=== PATIENT | female | born 1960 | race Caucasian/White ===

== ENCOUNTER 2023-08-14 09:51 | Outpatient (OUT) | payer MEDICARE, MEDICAID, SELFPAY ==
--- NOTE | 2023-08-14 10:43 | ECG_ITS ---
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
[2023-08-14 10:59] LABS: Basophils Percent Auto 0.2 % (0.2-2.0); Eosinophils Absolute Auto 0.1 10^3/uL (0.0-0.7); Eosinophils Percent Auto 1.4 % (0.9-7.0); Hematocrit 37.9 % (36.0-48.0); Hemoglobin 12.1 g/dL (12.0-16.0); Immature Granulocytes Abs Auto 0.02 10^3/uL (0.00-0.03); Immature Granulocytes Pct Auto 0.3 % (0.0-0.5); Lymphocytes Absolute Auto 0.9 10^3/uL (1.2-3.8); Lymphocytes Percent Auto 16.1 % (20.5-60.0); Mean Corpuscular HGB Conc 31.9 g/dL (29.9-35.2); Mean Corpuscular Hemoglobin 28.3 pg (26.7-34.0); Mean Corpuscular Volume 88.6 fL (81.0-99.0); Mean Platelet Volume 13.6 fL (9.5-13.5); Monocytes Absolute Auto 0.4 10^3/uL (0.3-0.8); Monocytes Percent Auto 6.7 % (1.7-12.0); Neutrophils Absolute Auto 4.4 10^3/uL (1.4-6.5); Neutrophils Percent Auto 75.3 % (43.0-75.0); Platelet Count 102 10^3/uL (150-450); Red Blood Count 4.28 10^6/uL (4.20-5.40); Red Cell Distribution Width 13.6 % (11.0-15.0); White Blood Count 5.8 10^3/uL (4.0-11.0)
== END 2023-08-14 09:52 | disposition home or self-care (01) ==
LOC: PST 09:57
PROVIDERS: Visit Provider Otolaryngology
DX: Z01.810 Encounter for preprocedural cardiovascular examination (principal); Z01.812 Encounter for preprocedural laboratory examination; T16.2XXA Foreign body in left ear, initial encounter
CPT/HCPCS: 36415; 85025; 93005

== ENCOUNTER 2023-09-04 08:18 | Day surgery (SDC) | payer MEDICARE, MEDICAID, SELFPAY ==
[2023-08-14 10:41] VITALS: BP 132/83; PULSE 75; RESP 20; TEMP 36.5; O2SAT 94; BMI 29.2
[2023-09-04] VITALS (11 sets, daily range): BP systolic 131–147; BP diastolic 84–103; PULSE 74–86; RESP 9–28; TEMP 35.9–36.1; O2SAT 92–96
--- NOTE | 2023-09-04 | OP_ITS ---
OPERATION DATE: 09/04/2023 PRIMARY CARE PHYSICIAN: Bob Hoyos M.D. SURGEON: Yoon Florian M.D. PREOPERATIVE DIAGNOSIS: Left middle ear foreign body. POSTOPERATIVE DIAGNOSIS: Bilateral ear foreign bodies. PROCEDURE: Bilateral removal of ear foreign bodies. ANESTHESIA: General LMA. COMPLICATIONS: None. FINDINGS: Extensive bilateral crusting of the tympanic membrane with left tympanic membrane inflammation, and a left anterior 10% tympanic membrane perforation with no left middle ear foreign body found, and a pin point right tympanic membrane perforation. INDICATIONS: This 63-year-old woman presented to have her ears cleaned. She was noted in 2022 to have an apparent modified Romain?s T-tube in her left anterior middle ear, which was visualized through her perforation. She did not follow through with preadmission testing to have the foreign body removed at that time. In June, she returned and again there appeared to be a foreign body in the anterior left middle, and she was brought to the OR for removal. After careful exploration in the operating room, with the patient anesthetized, still no middle ear foreign body could be found on the left, and there was a shadow created by the eustachian tube orifice, which appeared as though it may have mimicked a middle ear foreign body. Nonetheless, the patient had marked crusting of her left tympanic membrane, which was debrided with a pick and an alligator. The right ear was then examined to ensure that a mistake had not been made in the office, documenting the incorrect side containing the foreign body, and examination of the right ear did not show any foreign body either; however, again, there was extensive crusting of the tympanic membrane and external auditory canal, which was debrided. PROCEDURE: Patient identified in the holding are and taken back to the OR, where she was placed in the supine position. After induction of general anesthesia by LMA, the left ear was approached with the otomicroscope. Examination of the middle ear through the patient?s tympanic membrane perforation did not reveal any clear foreign body; however, there was a linear shadow anteriorly, created by the eustachian tube orifice that was noted. Right angle picks and suction were used to explore the middle ear through the perforation, to ensure that what had previously appeared to be a tympanostomy tube in the middle ear, had not migrated out of view, and there was no foreign body identified. The patient did have extensive crusting, which was debrided with a pick and a forcep, and Ciprodex drops were infused in the left ear, because of inflammation of the tympanic membrane around the perforation. Attention was then turned to the right ear, as noted, to ensure that it was not a right ear foreign body and that incorrect documentation in the office had occurred. However, there was no middle ear foreign body found; although again, there was marked crusting of the tympanic membrane and external auditory canal, which was debrided with a pick and a forcep. The patient was then awakened and taken to the recovery room in good condition. MAKSIM
--- OUTSIDE RECORDS SUMMARY | 2023-09-04 08:22 | XMS_ITS | CCD ---
Author Name Unknown Address [address] [place] [address] Organization [facility] Care Team Providers Care Technical Supervisor Name Role Phone MISC, DR KOCH Admitting Unavailable MISC, DR KOCH Attending Unavailable MISC, DR KOCH Primary Care Unavailable MIS, DR KOCH Consulting Unavailable AYDE BLANCHARD Primary Care Physician [phone] BROOK MONTEIRO Attending Unavailable GO SHERIFF Referring Unavailable SILVIA NUR Attending Unavailable Jackelyn Camarena Unavailable Ayde Hoyos MD Primary Care Provider Allergies Allergy Classification Reported Allergen(s) Allergy Type Date of Onset Reaction(s) Facility (2 sources) Prochlorperazine Drug Allergy 02-25-20 13 muscle twitcing [facility] Repository (3 sources) Prochlorperazine; Translations: [prochlorperazine] Drug Allergy 12-27-19 23 Temporomandibular joint locking (finding), Unknown [facility] Medications Current Medications Medication Drug Class(es) Dates Sig (Normalized) Sig (Original) cholecalciferol 0.05 mg oral capsule (1 source) Vitamin D Start: 02-06-2023 cholecalciferol (Vitamin D-3) 50 MCG (1999 UT) capsule Take by mouth Daily. 0 02/06/2023 Active dexamethasone 1 mg/ml / neomycin 3.5 mg/ml / polymyxin b 28963 unt/ml ophthalmic suspension (1 source) Aminoglycoside Antibacterial, Polymyxin-class Antibacterial, Corticosteroid Start: 07-24-2023 take 1 drop(s) into the eye(s) four times daily Neomycin-Polymyxin- Dexameth [id number] 1 drop into affected eye Ophthalmic Four times a day for 5 days Jul, Active ergocalciferol 0.05 mg oral capsule (1 source) Provitamin D2 Compound Start: 03-20-2023 take 1 capsule by mouth in the morning ergocalciferol (Vitamin D-2) 50 MCG (1999) capsule Take 1 capsule by mouth in the morning. 0 03/20/2023 Active 24 hr oxybutynin chloride 5 mg extended release oral tablet (1 source) Cholinergic Muscarinic Antagonist Start: 01-11-2023 oxybutynin 5 mg ER Tab Refills(s) 0 Start Date: 01/11/23 Status: Ordered QUEtiapine 100 mg oral tablet (4 sources) Atypical Antipsychotic Start: 01-11-2023 quetiapine 100 mg Tab Refills(s) 0 Start Date: 01/11/23 Status: Ordered take 1 tablet by shy th every twenty-four hours SEROquel 100 MG 1 tablet at bedtime Oral ly Once a day Not-Taking/PRN sertraline 100 mg oral tablet (3 sources) Serotonin Reuptake Inhibitor Start: 01-20-2020 sertraline 100 mg Ta b Refills(s) 0 Start Date: 01/11/23 Status: Ordered sertraline (Zolo ft) 100 MG tablet Take 150 mg by mouth 1 (one) time each day at the same time. 0 Active vitamin b12 0.1 mg oral lozenge (1 source) Vitamin B12 Cyanocobalamin ( Vitamin B 12) 100 MCG lozenge Vitamin B 12 0 Active Vitamin D (1 source) Vitamin D Active VITAMIN D3 2,000 UNIT SOFTGEL (1 source) Start: 01-11-2023 VITAMIN D3 2,0 00 UNIT SOFTGEL VITAMIN D3 2,000 UNIT SOFTGEL Start Date: 01/11/23 Status: Ordered Problems Active Problems Problem Classification Problem Date Documented Date Episodic/Chronic Coagulation and hemorrhagic disorders (1 source) Thrombocytopenic disorder 01-11-2023 Chroni c Disorders of lipid metabolism (1 source) Pure hypercholesterolemia, unspecified; Translations: [PURE HYPERCHOLESTEROLEMIA UNSPEC] Onset: Chronic Essential hypertension (1 source) Hypertensive disorder 01-11-2023 Chronic Inflammation; infection of eye (except that caused by tuberculosis or sexually transmitteddisease) (1 source) Unspecified conjunctivitis Episodic Other acquired deformities (1 source) Scoliosis deformity of spine 01-11-2023 Chronic Other ear and sense organ disorders (1 source) Bilateral hearing loss; Translations: [Unspecified hearing loss, bilateral] Onset: 3 12-26-2022 Chronic Other ear and sense organ disorders (1 source) Chronic right myringitis; Translations: [Chronic myringitis, right ear] Onset: 3 12-26-2022 Chronic Other ear and sense organ disorders (1 source) Sensorineural hearing loss, bilateral; Translations: [Sensorineural hearing loss, bilateral] Onset: 3 12-26-2022 Chronic Other nervous system disorders (1 source) Chronic pain; Translations: [Other chronic pain] Onset: Resolved: 12-26-2022 Chronic Unclassified (1 source) Intellectual disability 01-11-2023 Past or Other Problems Problem Classification Problem Date Documented Date Episodic/Chronic Alcohol-related disorders (1 source) Alcohol abuse; Translations: [Alcohol abuse, uncomplicated] Onset: 12-26-2022 Resolved: 12-26-2022 12-26-2022 Chronic Anxiety disorders (3 sources) Anxiety; Translations: [Generalized anxiety disorder] Onset: 12-26-2022 Resolved: 12-26-2022 01-11-2023 Chronic Developmental disorders (1 source) Mild intellectual disability; Translations: [Mild intellectual disabilities] Onset: 12-26-2022 Resolved: 12-26-2022 12-26-2022 Chronic Mood disorders (5 sources) Major depressive disorder, single episode, in full remission; Translations: [Bipolar affective disorder, current episode manic] Onset: 06-01-2022 Resolved: 12-26-2022 Chronic Osteoarthritis (1 source) Primary gonarthrosis, bilateral; Translations: [Bilateral primary osteoarthritis of knee] Onset: 12-26-2022 Resolved: 12-26-2022 12-26-2022 Chronic Other connective tissue disease (1 source) History of repair of hip joint; Translations: [Presence of right artificial hip joint] Onset: 12-26-2022 Resolved: 12-26-2022 12-26-2022 Chronic Other connective tissue disease (1 source) Hip joint prosthesis present; Translations: [Presence of right artificial hip joint] Onset: 12-26-2022 Resolved: 12-26-2022 12-26-2022 Chronic Other connective tissue disease (1 source) Pain of right thigh; Translations: [Pain in right thigh] Onset: 12-26-2022 Resolved: 12-26-2022 12-26-2022 Episodic Other ear and sense organ disorders (1 source) Impacted cerumen of bilateral ears; Translations: [Impacted cerumen, bilateral] Onset: 01-03-2023 01-03-2023 Episodic Other inflammatory condition of skin (1 source) Rosacea; Translations: [Rosacea, unspecified] Onset: 12-26-2022 Resolved: 12-26-2022 12-26-2022 Chronic Other injuries and conditions due to external causes (1 source) Foreign body in middle ear; Translations: [Foreign body in left ear, initial encounter] Onset: 01-03-2023 01-03-2023 Episodic Other non-traumatic joint disorders (1 source) Pain in right knee; Translations: [Pain in joint, lower leg] Onset: 12-26-2022 Resolved: 12-26-2022 12-26-2022 Episodic Other non-traumatic joint disorders (1 source) Pain in right hip joint; Translations: [Pain in right hip] Onset: 12-26-2022 Resolved: 12-26-2022 12-26-2022 Episodic Otitis media and related conditions (2 sources) Postmastoidectomy complication; Translations: [Other disorders following mastoidectomy, unspecified ear] Onset: 12-26-2022 12-26-2022 Episodic Thyroid disorders (1 source) Goiter; Translations: [Nontoxic goiter, unspecified] Onset: 12-26-2022 Resolved: 12-26-2022 12-26-2022 Chronic Results Test Name Value Interpretation Reference Range Facil ity CBC AUTO DIFFon 06-01-2022 BASO # 0.0 103/ul Normal 0.0-0.1 [place] Comment on above: Performed By: #### C BC #### [facility] [address] [address] [address] Jone Plascencia Basophils/100 WBC (Bld) 0.4 % Normal 0.2-2.0 [place] Comment on above: Performed By: #### C BC #### [facility] [address] [place] [address] Dr. Jone Plascencia EO # 0.1 103/ul Normal 0.0-0.7 [facility] Comment on above: Performed By: #### C BC #### [facility] [address] [place] [address] Dr. Jone Plascencia Eosinophils/100 WBC (Bld) 1.5 % Normal 0.9-7.0 [facility] Comment on above: Performed By: #### C BC #### [facility] [address] [place] [address] Dr. Jone Plascencia Erythrocyte distribution width (RBC) [Ratio] 13.3 % Normal 11.0-15.0 [place] Comment on above: Performed By: #### C BC #### [facility] [address] [place] [address] Dr. Jone Plascencia Hematocrit (Bld) [Volume fraction] 38.4 % Normal 36.0-48.0 [place] Comment on above: Performed By: #### C BC #### [facility] [address] [place] [address] Dr. Jone Plascencia Hemoglobin (Bld) [Mass/Vol] 12.4 g/dL Normal 12.0-16.0 [place] Comment on above: Performed By: #### C BC #### [facility] [address] [place] [address] Dr. Jone Plascencia IG # 0.02 10e3/ul Normal 0.00-0.03 [facility] Comment on above: Performed By: #### C BC #### [facility] [address] [place] [address] Dr. Jone Plascencia IG % 0.4 % Normal 0.0-0.5 [facility] Comment on above: Performed By: #### C BC #### [facility] [address] [place] [address] Dr. Jone Plascencia LYMPH # 1.3 103/ul Normal 1.2-3.8 [facility] Comment on above: Performed By: #### C BC #### [facility] [address] [place] [address] Dr. Jone Plascencia Lymphocytes/100 WBC (Bld) 23.1 % Normal 20.5-60.0 [facility] Comment on above: Performed By: #### C BC #### [facility] [address] [place] [address] Dr. Jone Plascencia MANUAL DIFF REQ NO Normal [facility] Comment on above: Performed By: #### C BC #### [facility] [address] [place] [address] Dr. Jone Plascencia MCH (RBC) [Entitic mass] 28.2 pg Normal 26.7-34.0 [facility] Comment on above: Performed By: #### C BC #### [facility] [address] [place] [address] Dr. Jone Plascencia MCHC (RBC) [Mass/Vol] 32.3 g/dL Normal 29.9-35.2 [facility] Comment on above: Performed By: #### C BC #### [facility] [address] [place] [address] Dr. Jone Plascencia MCV (RBC) [Entitic vol] 87.5 fL Normal 81.0-99.0 [facility] Comment on above: Performed By: #### C BC #### [facility] [address] [place] [address] Dr. Jone Plascencia MONO # 0.4 103/ul Normal 0.3-0.8 [facility] Comment on above: Performed By: #### C BC #### [facility] [address] [place] [address] Dr. Jone Plascencia Monocytes/100 WBC (Bld) 7.0 % Normal 1.7-12.0 [facility] Comment on above: Performed By: #### C BC #### [facility] [address] [place] [address] Dr. Jone Plascencia NEUT # 3.7 103/ul Normal 1.4-6.5 [facility] Comment on above: Performed By: #### C BC #### [facility] [address] [place] [address] Dr. Jone Plascencia Neutrophils/100 WBC (Bld) 67.6 % Normal 43.0-75.0 [place] Comment on above: Performed By: #### C BC #### [facility] [address] [address] [address] Jone Plascencia Platelet mean volume (Bld) [Entitic vol] 12.0 fL Normal 9.5-13.5 [place] Comment on above: Performed By: #### C BC #### [facility] [address] [address] [address] Jone Plascencia PLT 109 103/ul Critically low 150-450 [facility] Comment on above: Performed By: #### C BC #### [facility] [address] [address] [address] Jone Plascencia RBC 4.39 106/ul Normal 4.20-5.40 [place] Comment on above: Performed By: #### C BC #### [facility] [address] [address] [address] Jone Plascencia WBC 5.4 103/ul Normal 4.0-11.0 [place] Comment on above: Performed By: #### C BC #### [facility] [address] [address] [address] Jone Plascencia FREE T4on 06-01-2022 Free T4 [Mass/Vol] 0.91 ng/dL Normal 0.76-1.46 [facility] Comment on above: Performed By: #### F T4 #### [facility] [address] [place] [address] Dr. Jone Plascencia LIPID PROFILEon 06-01-2022 CHOL-HDL RATIO NORM SEE BELOW Normal [facility] Comment on above: Result Comment: 3.3 - 4.4 LOW RISK 4.4 - 7.1 AVERAGE RISK 7.1 - 11.0 MODERATE RISK >11.0 HIGH RISK Performed By: #### C MP, TSH, LIPID #### [facility] [address] [address] [address] Jone Plascencia Cholesterol [Mass/Vol] 198 mg/dL Normal <=200 [place] Comment on above: Performed By: #### C MP, TSH, LIPID #### [facility] [address] [address] [address] Jone Plascencia Cholesterol in HDL [Mass/Vol] 52 mg/dL Normal 40-60 [place] Comment on above: Performed By: #### C MP, TSH, LIPID #### [facility] [address] [address] [address] Jone Plascencia Cholesterol in LDL [Mass/Vol] 126.2 mg/dL Normal [place] Comment on above: Performed By: #### C MP, TSH, LIPID #### [facility] [address] [address] [address] Jone Plascencia Cholesterol.total/C holesterol in HDL [Mass ratio] 3.8 {ratio} Normal [place] Comment on above: Performed By: #### C MP, TSH, LIPID #### [facility] [address] [address] [address] Jone Plascencia HDL NORMAL > or = 60 mg/dl - LO W CARDIOVASCULAR RISK <40 mg/dl - HIGH CARDIOVASCULAR RISK Normal [place] Comment on above: Performed By: #### C MP, TSH, LIPID #### [facility] [address] [address] [address] Jone Plascencia LDL CALC NORMAL SEE BELOW Normal [facility] Comment on above: Result Comment: <100 mg/dl OPTIMAL 100 - 129 mg/dl NEAR OR ABOVE OPTIMAL 130 - 159 mg/dl BORDERLINE HIGH 160 - 189 mg/dl HIGH >190 mg/dl VERY HIGH Performed By: #### C MP, TSH, LIPID #### [facility] [address] [address] [address] Jone Plascencia Triglyceride [Mass/Vol] 99 mg/dL Normal <=150 [facility] Comment on above: Performed By: #### C MP, TSH, LIPID #### [facility] [address] [address] [address] Jone Plascencia VLDL CALC 19.8 mg/dL Normal [place] Comment on above: Performed By: #### C MP, TSH, LIPID #### [facility] [address] [address] [address] Jone Plascencia PROF 14(COMP METB)on 022 Albumin [Mass/Vol] 4.0 g/dL Normal 3.4-5.0 [facility] Comment on above: Performed By: #### C MP, TSH, LIPID #### [facility] [address] [address] [address] Jone Plascencia Albumin/Globulin [Mass ratio] 1.1 {ratio} Normal [place] Comment on above: Performed By: #### C MP, TSH, LIPID #### [facility] [address] [address] [address] Jone Plascencia ALP [Catalytic activity/Vol] 97 U/L Normal 46-116 [place] Comment on above: Performed By: #### C MP, TSH, LIPID #### [facility] [address] [address] [address] Jone Plascencia ALT [Catalytic activity/Vol] 10 U/L Critically low 14-59 [place] Comment on above: Performed By: #### C MP, TSH, LIPID #### [facility] [address] [address] [address] Jone Plascencia Anion gap [Moles/Vol] 9.3 mmol/L Normal [place] Comment on above: Performed By: #### C MP, TSH, LIPID #### [facility] [address] [address] [address] Jone Plascencia AST [Catalytic activity/Vol] 10 U/L Critically low 15-37 [place] Comment on above: Performed By: #### C MP, TSH, LIPID #### [facility] [address] [address] [address] Jone Plascencia Bilirubin [Mass/Vol] 0.5 mg/dL Normal 0.2-1.0 [place] Comment on above: Performed By: #### C MP, TSH, LIPID #### [facility] [address] [address] [address] Jone Plascencia Calcium [Mass/Vol] 9.0 mg/dL Normal 8.5-10.1 [facility] Comment on above: Performed By: #### C MP, TSH, LIPID #### [facility] [address] [address] [address] Jone Plascencia Chloride [Moles/Vol] 105 mmol/L Normal 98-107 [place] Comment on above: Performed By: #### C MP, TSH, LIPID #### [facility] [address] [address] [address] Jone Plascencia CO2 [Moles/Vol] 27.8 mmol/L Normal 21.0-32.0 [facility] Comment on above: Performed By: #### C MP, TSH, LIPID #### [facility] [address] [place] [address] Dr. Jone Plascencia Creatinine [Mass/Vol] 0.85 mg/dL Normal 0.55-1.02 [place] Comment on above: Performed By: #### C MP, TSH, LIPID #### [facility] [address] [address] [address] Jone Plascencia EGFR-AF DJIBOUTIAN >60 Normal >=60 [facility] Comment on above: Performed By: #### C MP, TSH, LIPID #### [facility] [address] [place] [address] Dr. Jone Plascencia EGFR-NON AF DJIBOUTIAN >60 Normal >=60 [place] Comment on above: Performed By: #### C MP, TSH, LIPID #### [facility] [address] [place] [address] Dr. Jone Plascencia Globulin (S) [Mass/Vol] 3.5 g/dL Normal [place] Comment on above: Performed By: #### C MP, TSH, LIPID #### [facility] [address] [address] [address] Jone Plascencia Glucose [Mass/Vol] 97 mg/dL Normal 74-106 [facility] Comment on above: Performed By: #### C MP, TSH, LIPID #### [facility] [address] [place] [address] Dr. Jone Plascencia Potassium [Moles/Vol] 4.1 mmol/L Normal 3.5-5.1 [place] Comment on above: Performed By: #### C MP, TSH, LIPID #### [facility] [address] [place] [address] Dr. Jone Plascencia Protein [Mass/Vol] 7.5 g/dL Normal 6.4-8.2 [facility] Comment on above: Performed By: #### C MP, TSH, LIPID #### [facility] [address] [place] [address] Dr. Jone Plascencia Sodium [Moles/Vol] 138 mmol/L Normal 136-145 [facility] Comment on above: Performed By: #### C MP, TSH, LIPID #### [facility] [address] [place] [address] Dr. Jone Plascencia Urea nitrogen [Mass/Vol] 10.0 mg/dL Normal 7.0-18.0 [place] Comment on above: Performed By: #### C MP, TSH, LIPID #### [facility] [address] [place] [address] Dr. Jone Plascencia Urea nitrogen/Creatinine [Mass ratio] 11.8 mg/mg Normal [place] Comment on above: Performed By: #### C MP, TSH, LIPID #### [facility] [address] [place] [address] Dr. Jone Plascencia TSHon 06-01-2022 TSH 5.908 uIU/mL Critically high 0.358-3.740 [facility] Comment on above: Performed By: #### C MP, TSH, LIPID #### [facility] [address] [place] [address] Dr. Jone Plascencia Vital Signs Date Time Vital Sign Value Performing Clinician Facility 07-24-2023 17:25-0500 Body height 152.4 cm Jackelyn Camarena Other [facility] Other 07-24-2023 17:25-0500 Body mass index (BMI) [Ratio] 30.5 kg/m2 Jackelyn Camarena Other [facility] Other 07-24-2023 17:25-0500 Body temperature 98 [degF] Jackelyn Camarena Other [facility] Other 07-24-2023 17:25-0500 Body weight 70.85 kg Jackelyn Camarena Other [facility] Other 07-24-2023 17:25-0500 Respiratory rate 18 /min Jackelyn Camarena Other [facility] Other 07-24-2023 17:25-0500 SaO2% (BldA) [Mass fraction] 98 % Jackelyn Camarena Other [facility] Other Encounters Encounter Date Encounter Type Care Provider Facility Start: 08-31-2023 Chart abstracting Yoon moody MD Work Phone: [facility] Start: 07-24-2023 End: 07-24-2023 ambulatory Jackelyn Camarena Other [facility] Other Start: 07-24-2023 Office outpatient ne w 20 minutes Jackelyn Camarena [facility] Start: 06-28-2023 End: 06-28-2023 ambulatory SILVIA NUR Not Available Start: 04-03-2023 End: 04-04-2023 ambulatory BROOK MONTEIRO Facility:[facility] Start: 04-03-2023 End: 04-03-2023 Patient encounter procedure BROOK MONTEIRO [facility] Start: 12-05-2022 ambulatory BROOK MONTEIRO Facility :[facility] Start: 06-01-2022 End: 06-02-[address] DOCTOR BARNARD Facility:[facility] Procedures Date Procedure Procedure Detail Performing Clinician Back structure, excl uding neck (body structure) BROOK MONTEIRO Both ears (body structure) J ENNIFER CAYETANO Insertion of hip prosthesis BROOK MONTEIRO Ligation of fallopian tube Elham MONTEIRO Tonsillectomy and adenoidectomy BROOK MONTEIRO Plan of Treatment Date Care Activity Detail Author Start: 09-06-2023 End: 09-06-2023 Patient encounter procedure 09/06/2023 3:20 PM EST Procedure Visit [facility] [address] [facility] [address] [place] [id number] Silvia Nur DPM [address] [facility] [address] [place] [address] [facility] Start: 09-04-2023 End: 09-04-2023 Patient encounter procedure 09/04/2023 10:00 AM EST Procedure Visit [facility] Yoon Florian MD [address] [facility] [address] [place] [address] [facility] Payers Date Payer Category Payer Medicaid MEDICAID [facility] [id number] 2017-Present [phone] [address] [place] [address] Medicaid [id number] 1981 Medicare MEDICARE MEDICAR E PART B [id number] 1981-Present [address] [address] [place] [address] Medicare [id number] 1961 Unknown [id number] 1961 Unknown [id number] 1961 Unknown [id number] 1961 Unknown [id number] 1958 Medicaid [id number] 1958 Medicare [id number] Social History Date Type Detail Facility Tobacco smoking status [facility] Start: 07-04-2023 Sex Assigned At Female [facility] Start: 12-26-2022 Tobacco smoking stat us DCIS Never smoked tobacco [facility] Start: 12-26-2022 Tobacco use and exposure Smokeless tobacco non-user [facility] Start: 07-04-2023 Alcohol intake Ex-drinker (finding) [facility] Start: 07-04-2023 History of Social function [facility] Start: 01-13-2023 Education 13 [facility] Start: 01-13-2023 Alcohol Comment Caffeine intak e: 1-2 cups per day of coffee [facility] Start: 1960 Sex Assigned At Not on file [facility] Evaluation note 07-24-2023 Note Date & Type Note Facility 07-24-2023 Evaluation note Encounter Date Diagnosis Assessment Notes Jul, Bacterial conjunctivitis of right eye (ICD-10 - H10.9) Advised patient/caregive r to use eye drops as prescribed, discussed proper administration. Contagious until after 24 hours on antibiotic eye drops. Advised good hand hygiene and infection control, wash linens and bedding, do not touch eye directly with eye drop botwtle, wipe off bottle after every use, do not share eye drop bottles. Apply cool compress to eye several times a day, clean eye with warm, most cloth from inner to outer canthus. Avoid eye makeup until sx resolve, discard all eye makeup that was used at time of infection. Eye symptoms should improve in 2-3 days with treatment, if no improvement follow up with PCP or eye doctor. Documentation provided for intermediate. Immediate eval if symptoms worsen, eye pain, vision changes, redness and swelling occur around the eye, headache, fever, N/V or any other concerning symptoms. Patient and caregiver verbalizes understanding and is agreeable to treatment plan. [facility] Other Hospital Discharge instructions 12-05-2022 Note Date & Type Note Facility 12-05-2022 Hospital Discharg e instructions Follow Up Care 12/05/2022 15:01:30 With:BROOK MONTEIRO PA-C, URL Address: [address] [place] [address] When: Unknown [facility] Evaluation + Plan note Note Date & Type Note Facility Evaluation + Plan note No data available for this section [facility] Pull History general Narrative - Reported Note Date & Type Note Facility History general Narrative - Reported Type Medical History anxiety Medical History developmental delay Surgical History back surgery Surgical History ear surgery Surgical History tonsillectomy and adenoidectomy Surgical History hip Hospitalization History see above [facility] Other Progress note Note Date & Type Note Facility Progress note No data available for this section [facility] Pull Summary Purpose Family History No Family History Records FoundNo Family History Records FoundNo Family History Records Found Advance Directives No Advanced Directives Records FoundNo Advanced Directives Records FoundNo Advanced Directives Records Found Additional Source Comments INFORMATION SOURCE (unrecogn ized section and content) DATE CREATED AUTHOR 06/07/2022 [facility] DATE CREATED AUTHOR AUTHOR'S ORGANIZ ATION 04/05/2023 [facility] DATE CREATED AUTHOR AUTHOR'S ORGANIZ ATION 07/01/2023 [facility] EPIC Patient Care team informatio n (unrecognized section and content) Technical Supervisor Relationship Specialty Start Date End Date Ayde Hoyos MD [address] [place] [id number] PCP - General Family Medicine 01/02/23 REASON FOR VISIT (unrecogniz ed section and content) possible pink eye FOR RECORDS PERTAINING TO PATIENTS WHO ARE OR HAVE BEEN ENROLLED IN A CHEMICAL DEPENDENCY/SUBSTANCEABUSE PROGRAM, SOME INFORMATION MAY BE OMITTED. This clinical summary was aggregated from multiple sources. Caution should be exercised in using it in the provision of clinical care. This summary normalizes information from multiple sources, and as a consequence, information in this document may materially change the coding, format and clinical context of patient data. In addition, data may be omitted in some cases. CLINICAL DECISIONS SHOULD BE BASED ON THE PRIMARY CLINICAL RECORDS. [employer] [facility]. provides no warranty or guarantee of the accuracy or completeness of information in this document.
--- NOTE | 2023-09-04 08:48 | ECG_ITS ---
[facility] Test Date: 2023-09-04 Pat Name: FRANCESCA DIAMOND Department: Room: - Gender: Female Occupational Medicine Specialist: : 1960 Requested By: JOSUE OLIVARES Order Number: [id number] Reading MD: TANYA THURSTON Measurements Intervals [place] Rate: 80 P: 50 [place]: 133 QRS: 34 QRSD: 104 T: 48 QT: 352 QTc: 408 Interpretive Statements SINUS RHYTHM INCOMPLETE RIGHT BUNDLE BRANCH BLOCK [90+ ms QRS DURATION, TERMINAL R IN V1/V2, 40+ ms S IN I/aVL/V4/V5/V6] MINIMAL ST DEPRESSION [0.025+ mV ST DEPRESSION] Electronically Signed On 09-04-2023 20:08:55 EST by TANYA THURSTON
--- NOTE | 2023-09-04 09:05 | PC.NURSE ---
Points to right chest area and states it hurts; unable to give number; no facial grimacing; states she' s very nervous; no c/o SOB or radiation of pain; skin warm,dry and pink; anesthesia notified and EKG ordered; states she doesn't want her mother to know about the chest pain
[2023-09-04] MEDS: LACTATED RINGER'S SOLUTION 1,000 ML 50 ML IV (09:09)
[2023-09-04] MEDS: CIPROFLOXACIN HCL/DEXAMETH 0.3%/0.1% OTIC SUSP 150 DROP/7.5 ML BOTTLE OT (10:09)
--- NOTE | 2023-09-04 11:33 | PC.NURSE ---
No active left ear drainage noted
== END 2023-09-04 11:25 | disposition home or self-care (01) ==
PROVIDERS: Visit Provider Otolaryngology
PROC: (CPT 00120; principal; 2023-09-04 09:30)
DX: H74.8X3 Other specified disorders of middle ear and mastoid, bilateral (principal); H90.3 Sensorineural hearing loss, bilateral; Z96.641 Presence of right artificial hip joint; I10 Essential (primary) hypertension; E78.5 Hyperlipidemia, unspecified; M79.7 Fibromyalgia; F17.290 Nicotine dependence, other tobacco product, uncomplicated; K21.9 Gastro-esophageal reflux disease without esophagitis
CPT/HCPCS: 00120; 69799; 93005; J2704

== ENCOUNTER 2023-10-11 08:51 | Outpatient (OUT) | payer MEDICARE, MEDICAID, SELFPAY ==
--- OUTSIDE RECORDS SUMMARY | 2023-10-11 09:02 | XMS_ITS | CCD ---
Author Organization [facility] Care Team Providers Care Oracle Database Consultant Name Role Phone EVON, DR KOCH Admitting Unavailable MISC, DR KOCH Attending Unavailable EVON, DR KOCH Primary Care Unavailable PEREZC, DR KOCH Consulting Unavailable AYDE BLANCHARD Primary Care Physician BROOK MONTEIRO Attending Unavailable GO SHERIFF Referring Unavailable Camarena, Jackelyn Unavailable Ayde Hoyos MD Primary Care Provider CURTIS NUR Attending Unavailable CURTIS NUR Attending Unavailable YOON OLIVARES Attending Unavailable Allergies Allergy Classification Reported Allergen(s) Allergy Type Date of Onset Reaction(s) Facility (2 sources) Prochlorperazine Drug Allergy 02-25-20 13 muscle twitcing [facility] Repository (5 sources) Prochlorperazine; Translations: [prochlorperazine] Drug Allergy 12-27-19 23 Temporomandibular joint locking (finding), Unknown [facility] Medications Current Medications Medication Drug Class(es) Dates Sig (Normalized) Sig (Original) cholecalciferol 0.05 mg oral capsule (3 sources) Vitamin D Start: 02-06-2023 cholecalciferol (Vitamin D-3) 50 MCG (1999) capsule Take by mouth Daily. 0 02/06/2023 Active dexamethasone 1 mg/ml / neomycin 3.5 mg/ml / polymyxin b 20302 unt/ml ophthalmic suspension (1 source) Aminoglycoside Antibacterial, Polymyxin-class Antibacterial, Corticosteroid Start: 07-24-2023 take 1 drop(s) into the eye(s) four times daily Neomycin-Polymyxin- Dexameth [id number] 1 drop into affected eye Ophthalmic Four times a day for 5 days Jul, Active ergocalciferol 0.05 mg oral capsule (3 sources) Provitamin D2 Compound Start: 03-20-2023 take 1 [...] Status: Ordered QUEtiapine 100 mg oral tablet (6 sources) Atypical Antipsychotic Start: 01-11-2023 quetiapine 100 mg Tab Refills(s) 0 Start Date: 01/11/23 Status: Ordered take 1 tablet by shy th every twenty-four hours SEROquel 100 MG 1 tablet at bedtime Oral ly Once a day Not-Taking/PRN sertraline 100 mg oral tablet (5 sources) Serotonin Reuptake Inhibitor Start: 01-20-2020 sertraline 100 mg Ta b Refills(s) 0 Start Date: 01/11/23 Status: Ordered sertraline (Zolo ft) 100 MG tablet Take 150 mg by mouth 1 (one) time each day at the same time. 0 Active vitamin b12 0.1 mg oral lozenge (3 sources) Vitamin B12 Cyanocobalamin ( Vitamin B 12) 100 MCG lozenge Vitamin B 12 0 Active Vitamin D (1 source) Vitamin D Active VITAMIN D3 2,000 UNIT SOFTGEL (1 source) Start: 01-11-2023 VITAMIN D3 2,000 UNIT SOFTGE L VITAMIN D3 2,000 UNIT SOFTGEL Start Date: 01/11/23 Status: Ordered Problems Active Problems Problem Classification Problem Date Documented Date Episodic/Chronic Coagulation and hemorrhagic disorders (1 source) Thrombocytopenic disorder 01-11-2023 Chroni c Disorders of lipid metabolism (1 source) Pure hypercholesterolemia, unspecified; Translations: [PURE HYPERCHOLESTEROLEMIA UNSPEC] Onset: 2 Chronic Essential hypertension (1 source) Hypertensive disorder 01-11-2023 Chronic Inflammation; infection of eye (except that caused by tuberculosis or sexually transmitteddisease) (1 source) Unspecified conjunctivitis Episodic Mycoses (1 source) Onychomycosis; Translations: [Tinea unguium] 09-05-2023 Episodic Other acquired deformities (1 source) Scoliosis deformity of spine 01-11-2023 Chronic Other bone disease and musculoskeletal deformities (1 source) Exostosis of right foot; Translations: [Other specified disorders of bone, ankle and foot] 09-05-2023 Episodic Other connective tissue disease (1 source) Pain of toes of bilateral feet; Translations: [Pain in right toe(s)] 09-05-2023 Episodic Other ear and sense organ disorders (3 sources) Bilateral hearing loss; Translations: [Unspecified hearing loss, bilateral] Onset: 3 12-26-2022 Chronic Other ear and sense organ disorders (3 sources) Chronic right myringitis; Translations: [Chronic myringitis, right ear] Onset: 3 12-26-2022 Chronic Other ear and sense organ disorders (3 sources) Sensorineural hearing loss, bilateral; Translations: [Sensorineural hearing loss, bilateral] Onset: 3 12-26-2022 Chronic Other nervous system disorders (3 sources) Chronic pain; Translations: [Other chronic pain] Onset: 3 Resolved: 3 12-26-2022 Chronic Unclassified (1 source) Intellectual disability 01-11-2023 Past or Other Problems Problem Classification Problem Date Documented Date Episodic/Chronic Alcohol-related disorders (3 sources) Alcohol abuse; Translations: [Alcohol abuse, uncomplicated] Onset: 12-26-2022 Resolved: 12-26-2022 12-26-2022 Chronic Anxiety disorders (5 sources) Anxiety; Translations: [Generalized anxiety disorder] Onset: 12-26-2022 Resolved: 12-26-2022 01-11-2023 Chronic Developmental disorders (3 sources) Mild intellectual disability; Translations: [Mild intellectual disabilities] Onset: 12-26-2022 Resolved: 12-26-2022 12-26-2022 Chronic Mood disorders (7 sources) Major depressive disorder, single episode, in full remission; Translations: [Bipolar affective disorder, current episode manic] Onset: 06-01-2022 Resolved: 12-26-2022 Chronic Osteoarthritis (3 sources) Primary gonarthrosis, bilateral; Translations: [Bilateral primary osteoarthritis of knee] Onset: 12-26-2022 Resolved: 12-26-2022 12-26-2022 Chronic Other connective tissue disease (3 sources) History of repair of hip joint; Translations: [Presence of right artificial hip joint] Onset: 12-26-2022 Resolved: 12-26-2022 12-26-2022 Chronic Other connective tissue disease (3 sources) Hip joint prosthesis present; Translations: [Presence of right artificial hip joint] Onset: 12-26-2022 Resolved: 12-26-2022 12-26-2022 Chronic Other connective tissue disease (3 sources) Pain of right thigh; Translations: [Pain in right thigh] Onset: 12-26-2022 Resolved: 12-26-2022 12-26-2022 Episodic Other ear and sense organ disorders (3 sources) Impacted cerumen of bilateral ears; Translations: [Impacted cerumen, bilateral] Onset: 01-03-2023 01-03-2023 Episodic Other inflammatory condition of skin (3 sources) Rosacea; Translations: [Rosacea, unspecified] Onset: 12-26-2022 Resolved: 12-26-2022 12-26-2022 Chronic Other injuries and conditions due to external causes (3 sources) Foreign body in middle ear; Translations: [Foreign body in left ear, initial encounter] Onset: 01-03-2023 01-03-2023 Episodic Other non-traumatic joint disorders (3 sources) Pain in right knee; Translations: [Pain in joint, lower leg] Onset: 12-26-2022 Resolved: 12-26-2022 12-26-2022 Episodic Other non-traumatic joint disorders (3 sources) Pain in right hip joint; Translations: [Pain in right hip] Onset: 12-26-2022 Resolved: 12-26-2022 12-26-2022 Episodic Otitis media and related conditions (6 sources) Postmastoidectomy complication; Translations: [Other disorders following mastoidectomy, unspecified ear] Onset: 12-26-2022 12-26-2022 Episodic Thyroid disorders (3 sources) Goiter; Translations: [Nontoxic goiter, unspecified] Onset: 12-26-2022 Resolved: 12-26-2022 12-26-2022 Chronic Results Test Name Value Interpretation Reference Range Facil ity CBC AUTO DIFFon 06-01-2022 BASO # 0.0 103/ul Normal 0.0-0.1 [facility] Comment on above: Performed By: #### C BC #### [facility] [address] [place] [address] Dr. Jone Plascencia Basophils/100 WBC (Bld) 0.4 % Normal 0.2-2.0 [facility] Comment on above: Performed By: #### C BC #### [facility] [address] [place] [address] Dr. Jone Plascencia EO # 0.1 103/ul Normal 0.0-0.7 [facility] Comment on above: Performed By: #### C BC #### [facility] [address] [place] [address] Dr. Jone Plascencia Eosinophils/100 WBC (Bld) 1.5 % Normal 0.9-7.0 [facility] Comment on above: Performed By: #### C BC #### [facility] [address] [place] [address] Dr. Jone Plascencia Erythrocyte distribution width (RBC) [Ratio] 13.3 % Normal 11.0-15.0 [facility] Comment on above: Performed By: #### C BC #### [facility] [address] [place] [address] Dr. Jone Plascencia Hematocrit (Bld) [Volume fraction] 38.4 % Normal 36.0-48.0 [facility] Comment on above: Performed By: #### C BC #### [facility] [address] [place] [address] Dr. Jone Plascencia Hemoglobin (Bld) [Mass/Vol] 12.4 g/dL Normal 12.0-16.0 [facility] Comment on above: Performed By: #### C BC #### [facility] [address] [place] [address] Dr. Jone Plascencia IG # 0.02 10e3/ul Normal 0.00-0.03 [facility] Comment on above: Performed By: #### C BC #### [facility] [address] [place] [address] Dr. Jone Plascencia IG % 0.4 % Normal 0.0-0.5 [facility] Comment on above: Performed By: #### C BC #### [facility] [address] [place] [address] Dr. Jone Plascencia LYMPH # 1.3 103/ul Normal 1.2-3.8 [facility] Comment on above: Performed By: #### C BC #### [facility] [address] [place] [address] Dr. Jone Plascencia Lymphocytes/100 WBC (Bld) 23.1 % Normal 20.5-60.0 [facility] Comment on above: Performed By: #### C BC #### [facility] [address] [place] [address] Dr. Jone Plascencia MANUAL DIFF REQ NO Normal [facility] Comment on above: Performed By: #### C BC #### [facility] [address] [place] [address] Dr. Jone Plascencia MCH (RBC) [Entitic mass] 28.2 pg Normal 26.7-34.0 [facility] Comment on above: Performed By: #### C BC #### [facility] [address] [place] [address] Dr. Jone Plascencia MCHC (RBC) [Mass/Vol] 32.3 g/dL Normal 29.9-35.2 [facility] Comment on above: Performed By: #### C BC #### [facility] [address] [place] [address] Dr. Jone Plascencia MCV (RBC) [Entitic vol] 87.5 fL Normal 81.0-99.0 [facility] Comment on above: Performed By: #### C BC #### [facility] [address] [place] [address] Dr. Jone Plascencia MONO # 0.4 103/ul Normal 0.3-0.8 [facility] Comment on above: Performed By: #### C BC #### [facility] [address] [place] [address] Dr. Jone Plascencia Monocytes/100 WBC (Bld) 7.0 % Normal 1.7-12.0 [facility] Comment on above: Performed By: #### C BC #### [facility] [address] [address] [address] Jone Plascencia NEUT # 3.7 103/ul Normal 1.4-6.5 [facility] Comment on above: Performed By: #### C BC #### [facility] [address] [address] [address] Jone Plascencia Neutrophils/100 WBC (Bld) 67.6 % Normal 43.0-75.0 [facility] Comment on above: Performed By: #### C BC #### [facility] [address] [address] [address] Jone Plascencia Platelet mean volume (Bld) [Entitic vol] 12.0 fL Normal 9.5-13.5 [facility] Comment on above: Performed By: #### C BC #### [facility] [address] [place] [address] Dr. Jone Plascencia PLT 109 103/ul Critically low 150-450 [facility] Comment on above: Performed By: #### C BC #### [facility] [address] [place] [address] Dr. Jone Plascencia RBC 4.39 106/ul Normal 4.20-5.40 [facility] Comment on above: Performed By: #### C BC #### [facility] [address] [place] [address] Dr. Jone Plascencia WBC 5.4 103/ul Normal 4.0-11.0 [facility] Comment on above: Performed By: #### C BC #### [facility] [address] [address] [address] Jone Plascencia FREE T4on 06-01-2022 Free T4 [Mass/Vol] 0.91 ng/dL Normal 0.76-1.46 [facility] Comment on above: Performed By: #### F T4 #### [facility] [address] [place] [address] Dr. Jone Plascencia LIPID PROFILEon 06-01-2022 CHOL-HDL RATIO NORM SEE BELOW Normal [facility] Comment on above: Result Comment: 3.3 - 4.4 LOW RISK 4.4 - 7.1 AVERAGE RISK 7.1 - 11.0 MODERATE RISK >11.0 HIGH RISK Performed By: #### C MP, TSH, LIPID #### [facility] [address] [address] [address] Jone Plascencia Cholesterol [Mass/Vol] 198 mg/dL Normal <=200 [facility] Comment on above: Performed By: #### C MP, TSH, LIPID #### [facility] [address] [address] [address] Jone Plascencia Cholesterol in HDL [Mass/Vol] 52 mg/dL Normal 40-60 [facility] Comment on above: Performed By: #### C MP, TSH, LIPID #### [facility] [address] [place] [address] Dr. Jone Plascencia Cholesterol in LDL [Mass/Vol] 126.2 mg/dL Normal [facility] Comment on above: Performed By: #### C MP, TSH, LIPID #### [facility] [address] [place] [address] Dr. Jone Plascencia Cholesterol.total/C holesterol in HDL [Mass ratio] 3.8 {ratio} Normal [facility] Comment on above: Performed By: #### C MP, TSH, LIPID #### [facility] [address] [place] [address] Dr. Jone Plascencia HDL NORMAL > or = 60 mg/dl - LO W CARDIOVASCULAR RISK <40 mg/dl - HIGH CARDIOVASCULAR RISK Normal [facility] Comment on above: Performed By: #### C MP, TSH, LIPID #### [facility] [address] [place] [address] Dr. Jone Plascencia LDL CALC NORMAL SEE BELOW Normal [facility] Comment on above: Result Comment: <100 mg/dl OPTIMAL 100 - 129 mg/dl NEAR OR ABOVE OPTIMAL 130 - 159 mg/dl BORDERLINE HIGH 160 - 189 mg/dl HIGH >190 mg/dl VERY HIGH Performed By: #### C MP, TSH, LIPID #### [facility] [address] [address] [address] Jone Plascencia Triglyceride [Mass/Vol] 99 mg/dL Normal <=150 [facility] Comment on above: Performed By: #### C MP, TSH, LIPID #### [facility] [address] [place] [address] Dr. Jone Plascencia VLDL CALC 19.8 mg/dL Normal [facility] Comment on above: Performed By: #### C MP, TSH, LIPID #### [facility] [address] [place] [address] Dr. Jone Plascencia PROF 14(COMP METB)on 022 Albumin [Mass/Vol] 4.0 g/dL Normal 3.4-5.0 [facility] Comment on above: Performed By: #### C MP, TSH, LIPID #### [facility] [address] [place] [address] Dr. Jone Plascencia Albumin/Globulin [Mass ratio] 1.1 {ratio} Normal [facility] Comment on above: Performed By: #### C MP, TSH, LIPID #### [facility] [address] [place] [address] Dr. Jone Plascencia ALP [Catalytic activity/Vol] 97 U/L Normal 46-116 [facility] Comment on above: Performed By: #### C MP, TSH, LIPID #### [facility] [address] [place] [address] Dr. Jone Plascencia ALT [Catalytic activity/Vol] 10 U/L Critically low 14-59 [facility] Comment on above: Performed By: #### C MP, TSH, LIPID #### [facility] [address] [place] [address] Dr. Jone Plascencia Anion gap [Moles/Vol] 9.3 mmol/L Normal [facility] Comment on above: Performed By: #### C MP, TSH, LIPID #### [facility] [address] [place] [address] Dr. Jone Plascencia AST [Catalytic activity/Vol] 10 U/L Critically low 15-37 [facility] Comment on above: Performed By: #### C MP, TSH, LIPID #### [facility] [address] [place] [address] Dr. Jone Plascencia Bilirubin [Mass/Vol] 0.5 mg/dL Normal 0.2-1.0 [facility] Comment on above: Performed By: #### C MP, TSH, LIPID #### [facility] [address] [address] [address] Jone Plascencia Calcium [Mass/Vol] 9.0 mg/dL Normal 8.5-10.1 [facility] Comment on above: Performed By: #### C MP, TSH, LIPID #### [facility] [address] [address] [address] Jone Plascencia Chloride [Moles/Vol] 105 mmol/L Normal 98-107 [facility] Comment on above: Performed By: #### C MP, TSH, LIPID #### [facility] [address] [place] [address] Dr. Jone Plascencia CO2 [Moles/Vol] 27.8 mmol/L Normal 21.0-32.0 [facility] Comment on above: Performed By: #### C MP, TSH, LIPID #### [facility] [address] [place] [address] Dr. Jone Plascencia Creatinine [Mass/Vol] 0.85 mg/dL Normal 0.55-1.02 [facility] Comment on above: Performed By: #### C MP, TSH, LIPID #### [facility] [address] [place] [address] Dr. Jone Plascencia EGFR-AF KOSOVAN >60 Normal >=60 [facility] Comment on above: Performed By: #### C MP, TSH, LIPID #### [facility] [address] [place] [address] Dr. Jone Plascencia EGFR-NON AF KOSOVAN >60 Normal >=60 [facility] Comment on above: Performed By: #### C MP, TSH, LIPID #### [facility] [address] [place] [address] Dr. Jone Plascencia Globulin (S) [Mass/Vol] 3.5 g/dL Normal [facility] Comment on above: Performed By: #### C MP, TSH, LIPID #### [facility] [address] [address] [address] Jone Plascencia Glucose [Mass/Vol] 97 mg/dL Normal 74-106 [facility] Comment on above: Performed By: #### C MP, TSH, LIPID #### [facility] [address] [place] [address] Dr. Jone Plascencia Potassium [Moles/Vol] 4.1 mmol/L Normal 3.5-5.1 [facility] Comment on above: Performed By: #### C MP, TSH, LIPID #### [facility] [address] [place] [address] Dr. Jone Plascencia Protein [Mass/Vol] 7.5 g/dL Normal 6.4-8.2 [facility] Comment on above: Performed By: #### C MP, TSH, LIPID #### [facility] [address] [place] [address] Dr. Jone Plascencia Sodium [Moles/Vol] 138 mmol/L Normal 136-145 [facility] Comment on above: Performed By: #### C MP, TSH, LIPID #### [facility] [address] [place] [address] Dr. Jone Plascencia Urea nitrogen [Mass/Vol] 10.0 mg/dL Normal 7.0-18.0 [facility] Comment on above: Performed By: #### C MP, TSH, LIPID #### [facility] [address] [place] [address] Dr. Jone Plascencia Urea nitrogen/Creatinine [Mass ratio] 11.8 mg/mg Normal [facility] Comment on above: Performed By: #### C MP, TSH, LIPID #### [facility] [address] [place] [address] Dr. Jone Plascencia TSHon 06-01-2022 TSH 5.908 uIU/mL Critically high 0.358-3.740 [facility] Comment on above: Performed By: #### C MP, TSH, LIPID #### [facility] [address] [place] [address] Dr. Jone Plascencia Vital Signs Date Time Vital Sign Value Performing Clinician Facility 09-06-2023 15:35-0500 Body height 154.9 cm Curtis Nur DPM Work Phone: [facility] 09-06-2023 15:35-0500 Body mass index (BMI) [Ratio] 29.85 kg/m2 Curtis Nur DPM Work Phone: [facility] 09-06-2023 15:35-0500 Body weight 71.67 kg Curtis Nur DPM Work Phone: [facility] 09-06-2023 15:35-0500 Diastolic blood pressure 75 mm[Hg] Curtis Nur DPM Work Phone: [facility] 09-06-2023 15:35-0500 Heart rate 88 /min Curtis Nur DPM Work Phone: [facility] 09-06-2023 15:35-0500 Systolic blood pressure 123 mm[Hg] Curtis Nur DPM Work Phone: [facility] 07-24-2023 17:25-0500 Body height 152.4 cm Jackelyn Camarena Other [place] Other 07-24-2023 17:25-0500 Body mass index (BMI) [Ratio] 30.5 kg/m2 Jackelyn Camarena Other [place] Other 07-24-2023 17:25-0500 Body temperature 98 [degF] Jackelyn Camarena Other [facility] Other 07-24-2023 17:25-0500 Body weight 70.85 kg Jackelyn Camarena Other [facility] Other 07-24-2023 17:25-0500 Respiratory rate 18 /min Jackelyn Camarena Other [facility] Other 07-24-2023 17:25-0500 SaO2% (BldA) [Mass fraction] 98 % Jackelyn Camarena Other [facility] Other Encounters Encounter Date Encounter Type Care Provider Facility Start: 09-06-2023 End: 09-06-2023 ambulatory CURTIS NUR Not Available Start: 09-06-2023 End: 09-06-2023 Patient encounter procedure Curtis Nur DPM Work Phone: [facility] Comment on above: Onychomycosis (Prima ry Dx); Toe pain, bilateral; Exostosis of right foot Start: 09-06-2023 Chart abstracting Curtis norton DPM Work Phone: [facility] Start: 08-31-2023 Chart abstracting Yoon moody MD Work Phone: [facility] Start: 07-24-2023 End: 07-24-2023 ambulatory Jackelyn Camarena Other [place] Other Start: 07-24-2023 Office outpatient ne w 20 minutes Jackelyn Camarena [facility] Start: 07-04-2023 End: 07-04-2023 ambulatory YOON OLIVARES Not Available Start: 06-28-2023 End: 06-28-2023 ambulatory CURTIS NUR Not Available Start: 04-03-2023 End: 04-04-2023 ambulatory BROOK MONTEIRO Facility:[facility] Start: 04-03-2023 End: 04-03-2023 Patient encounter procedure BROOK MONTEIRO [facility] Start: 12-05-2022 ambulatory BROOK MONTEIRO Facility :[facility] Start: 06-01-2022 End: 06-02-[address] DOCTOR BARNARD Facility:[facility] Procedures Date Procedure Procedure Detail Performing Clinician Back structure, excl uding neck (body structure) BROOK MONTEIRO Both ears (body structure) Elham MONTEIRO Insertion of hip prosthesis BROOK MONTEIRO Ligation of fallopian tube Elham MONTEIRO Tonsillectomy and adenoidectomy BROOK MONTEIRO Plan of Treatment Date Care Activity Detail Author Start: 11-15-2023 End: 11-15-2023 Patient encounter procedure 11/15/2023 4:20 PM EDT Procedure Visit [facility] [address] [facility] [address] [place] [address] Curtis Nur DPM [address] [facility] [address] [place] [address] [facility] Start: 09-06-2023 End: 09-06-2023 Patient encounter procedure 09/06/2023 3:20 PM EST Procedure Visit [facility] [address] [address] [place] [id number] Curtis Nur DPM [address] [facility] [address] [place] [address] [facility] Start: 09-04-2023 End: 09-04-2023 Patient encounter procedure 09/04/2023 10:00 AM EST Procedure Visit [facility] Yoon Olivares MD [address] [facility] [address] [place] [address] [facility] Payers Date Payer Category Payer Medicaid MEDICAID [facility] [id number] 2017-Present [phone] [address] [place] [address] Medicaid [id number] 1981 Medicare MEDICARE MEDICAR E PART B [id number] 1981-[place] [address] Medicare [id number] 1961 Unknown [id number] 1961 Unknown [id number] 1961 Unknown [id number] 1961 Unknown [id number] 1961 Unknown [id number] 1961 Unknown [id number] 1959 Medicaid [id number] 1958 Medicare [id number] Social History Date Type Detail Facility Tobacco [facility] status [facility] Start: 07-04-2023 End: 09-06-2023 Sex Assigned At Female [facility] Start: 12-26-2022 [facility] Start: 12-26-2022 Tobacco use and exposure Smokeless tobacco non-user [facility] Start: 07-04-2023 End: 09-06-2023 Alcohol intake Ex-drinker (finding) [facility] Start: 07-04-2023 End: 09-06-2023 History of Social function [facility] Start: 01-13-2023 Education [facility] Start: 01-13-2023 Alcohol Comment Caffeine intak e: 1-2 cups per day of coffee [facility] Start: 1960 Sex Assigned At Not on file [facility] History of Present illness Narrative 09-06-2023 Curtis Nur, LAKESHIA - 09/06/2023 3:20 PM EST Note Date & Type Note Facility 09-06-2023 History of Presen t illness Narrative Patient: Michelle Diamond : 1960 PCP: Ayde Hoyos MD SUBJECTIVE This is a 63 y.o. female that presents today with a CC of elongated, thick nails. Pt states nails have been elongated and thick for many years and cause pain with ambulation in shoegear. Pt has tried previous treatment with minimal relief. Pt presents today for nail care and treatment. Patient also has complaints of pain to the right great toe region and area of distal phalanx. She is had common complaints of this in the past and states it is painful with ambulation and presents today with caregiver. Allergies: Allergies Allergen Reactions Prochlorperazine Unknown Past Medical History: Past Medical History: Diagnosis Date Alcohol abuse 12/26/2022 Anxiety 12/26/2022 Bilateral hearing loss Bipolar affective disorder, current episode manic ([facility]) 12/26/2022 Complication following bilateral mastoidectomy Drunkenness, acute, in alcoholism, with unspecified complication (CMS/[facility]) History of medical problems Mild mental retardation History of right hip replacement 12/26/2022 Osteoarthritis Other chronic pain 12/26/2022 Pain in right knee 12/26/2022 Presence of right artificial hip joint 12/26/2022 Primary osteoarthritis of both knees 12/26/2022 Right hip pain 12/26/2022 Right thigh pain 12/26/2022 Scoliosis Sensorineural hearing loss, bilateral Thyroid enlargement (CMS/HCC) 12/26/2022 Medications: Current Outpatient Medications: cholecalciferol (Vitamin D-3) 50 MCG (1999 UT) capsule, Take by mouth Daily., Disp: , Rfl: Cyanocobalamin (Vitamin B 12) 100 MCG lozenge, Vitamin B 12, Disp: , Rfl: ergocalciferol (Vitamin D-2) 50 MCG (1999 UT) capsule, Take 1 capsule by mouth in the morning., Disp: , Rfl: QUEtiapine (SEROquel) 100 MG tablet, Take 100 mg by mouth in the morning and 100 mg before bedtime., Disp: , Rfl: sertraline (Zoloft) 100 MG tablet, Take 150 mg by mouth 1 (one) time each day at the same time., Disp: , Rfl: Social History: Social History Socioeconomic History Marital status: Unmarried Spouse name: Not on file Number of children: Not on file Years of education: Not on file Highest education level: High school graduate Occupational History Not on file Tobacco Use Smoking status: Never Smokeless tobacco: Never Vaping Use Vaping Use: Never used Substance and Sexual Activity Alcohol use: Not Currently Comment: Caffeine intake: 1-2 cups per day of coffee Drug use: Never Sexual activity: Defer Other Topics Concern Not on file Social History Narrative Exercise: Walking Social Determinants of Health Financial Resource Strain: Not on file Food Insecurity: Not on file Transportation Needs: Not on file Physical Activity: Not on file Stress: Not on file Social Connections: Not on file Intimate Partner Violence: Not on file Housing Stability: Not on file ROS: General: denies fever, chills, fatigue, malaise OBJECTIVE LE EXAM: DERM: Elongated thick yellow crumbly nails digits 1 through 10. Positive hair growth b/l feet. Bony prominence noted to the distal phalanx right great toe medial tuft VASC: Positive palpable pedal pulses bilaterally NEURO: Gross sensation intact to bilateral feet ORTHO: Positive pain on palpation to nails 1 through 10 Positive palpation right great toe bony prominence ASSESSMENT 1. Onychomycosis 2. Toe pain, bilateral 3. Exostosis of right foot PLAN Discussed proper foot care with patient today. Debride nails in length and thickness digits 1 through 10 Discussed conservative and surgical treatment options for patient today including postoperative time frame and surgical procedure in detail. Patient may continue with conservative treatments including [id number] anti-inflammatories and other treatments suggested today. Patient may want to be scheduled for surgical intervention in the near future. Discussed possible exostectomy to the distal medial right hallux and area of bony prominence and area of pain. Discussed postoperative time frame with patient and caregiver present today and she states that she will also discuss with her when she has her hearing aids in and can better here and for more complete understanding at that time with follow-up in 70 days Curtis Nur DPM documented in this encounter [facility] Evaluation note 07-24-2023 Note Date & [...] PCP or eye doctor. Documentation provided for correction. Immediate eval if symptoms worsen, eye pain, vision changes, redness and swelling occur around the eye, headache, fever, N/V or any other concerning symptoms. Patient and caregiver verbalizes understanding and is agreeable to treatment plan. [facility] Discharge instructions 12-05-2022 Note Date & Type Note Facility 12-05-2022 Hospital Discharg e instructions Follow Up Care 12/05/2022 15:01:30 With:CAYETANO BURROWS, BROOK Martini, URL [facility] [address] [place] [address] When: Unknown [facility] Evaluation + Plan note Note Date & Type Note Facility Evaluation + Plan note No data available for this section [facility] Evaluation note Note Date & Type Note Facility Evaluation note Diagnosis Onychomycosis- Primary Dermatophytosis of nail Toe pain, bilateral Exostosis of right foot documented in this encounter [facility] History general Narrative - Reported Note Date & Type Note Facility History general Narrative - Reported Type Medical History anxiety Medical History developmental delay Surgical History back surgery Surgical History ear surgery Surgical History tonsillectomy and adenoidectomy Surgical History hip Hospitalization History see above [facility] Other Progress note Note Date & Type Note Facility Progress note No data available for this section [facility] Summary Purpose Family History No Family History Records FoundNo Family History Records FoundNo Family History Records Found Advance Directives No Advanced Directives Records FoundNo Advanced Directives Records FoundNo Advanced Directives Records Found Additional Source Comments INFORMATION SOURCE (unrecogn ized section and content) DATE CREATED AUTHOR 06/07/2022 [facility] DATE CREATED AUTHOR AUTHOR'S ORGANIZ ATION 04/05/2023 [facility] DATE CREATED AUTHOR AUTHOR'S ORGANIZ ATION 09/08/[address] [facility] d[facility] Specialists EPIC Patient Care team informatio n (unrecognized section and content) Oracle Database Consultant Relationship Specialty Start Date End Date Ayde Hoyos MD [address] [place] [address] PCP - General Family Medicine 01/02/23 [employer] Database Consultant Relationship Specialty Start Date End Date Ayde Hoyos MD [address] [place] [address] PCP - General Family Medicine 01/02/23 Oracle Database Consultant Relationship Specialty Start Date End Date Ayde Hoyos MD [facility] [place] [address] PCP - General Family Medicine 01/02/23 REASON FOR VISIT (unrecogniz ed section and content) Reason Comments Toenail Care Non DM Nails FOR RECORDS PERTAINING TO PATIENTS WHO ARE [...] BE BASED ON THE PRIMARY CLINICAL RECORDS. [employer] [facility]. provides no warranty or guarantee of the accuracy or completeness of information in this document.
[2023-10-11 09:25] LABS: Basophils Percent Auto 0.4 % (0.2-2.0); Eosinophils Absolute Auto 0.1 10^3/uL (0.0-0.7); Eosinophils Percent Auto 1.9 % (0.9-7.0); Hematocrit 39.1 % (36.0-48.0); Hemoglobin 12.5 g/dL (12.0-16.0); Lymphocytes Absolute Auto 0.9 10^3/uL (1.2-3.8); Lymphocytes Percent Auto 19.8 % (20.5-60.0); Mean Corpuscular Hemoglobin 28.4 pg (26.7-34.0); Mean Corpuscular Volume 88.9 fL (81.0-99.0); Mean Platelet Volume 12.8 fL (9.5-13.5); Monocytes Absolute Auto 0.3 10^3/uL (0.3-0.8); Monocytes Percent Auto 5.7 % (1.7-12.0); Neutrophils Absolute Auto 3.4 10^3/uL (1.4-6.5); Neutrophils Percent Auto 72.2 % (43.0-75.0); Platelet Count 87 10^3/uL (150-450); Red Cell Distribution Width 13.4 % (11.0-15.0); White Blood Count 4.7 10^3/uL (4.0-11.0)
[2023-10-11 11:25] LABS: Anion Gap 15.5; BUN Creatinine Ratio 12.1; Calcium 9.3 mg/dL (8.5-10.1); Carbon Dioxide 26.5 mmol/L (21.0-32.0); Chloride 103 mmol/L (98-107); Chol HDL Ratio 3.8; Cholesterol 214 mg/dL (<=200); Estimated GFR (African America >60 (>=60); Estimated GFR (Non-African Ame >60 (>=60); Glucose 94 mg/dL (74-106); HDL Cholesterol 57 mg/dL (40-60); Sodium 141 mmol/L (136-145); TSH W/ REFLEX FT4 9.555 uIU/mL (0.358-3.740); Triglycerides 98 mg/dL (<=150); VLDL CHOLESTEROL 19.6 mg/dL
[2023-10-11 17:20] LABS: Free T4 0.79 ng/dL (0.76-1.46)
== END 2023-10-11 08:52 | disposition home or self-care (01) ==
LOC: LAB 08:52
PROVIDERS: Visit Provider Family Medicine
DX: R10.13 Epigastric pain (principal); N32.81 Overactive bladder; R25.2 Cramp and spasm
CPT/HCPCS: 36415; 80048; 80061; 84439; 84443; 85025

== ENCOUNTER 2023-11-13 09:00 | Outpatient (OUT) | payer MEDICARE, MEDICAID, SELFPAY ==
[2023-11-13 09:38] LABS: Basophils Percent Auto 0.4 % (0.2-2.0); Eosinophils Absolute Auto 0.4 10^3/uL (0.0-0.7); Eosinophils Percent Auto 8.2 % (0.9-7.0); Hematocrit 36.4 % (36.0-48.0); Hemoglobin 11.6 g/dL (12.0-16.0); Immature Granulocytes Abs Auto 0.03 10^3/uL (0.00-0.03); Immature Granulocytes Pct Auto 0.6 % (0.0-0.5); Lymphocytes Percent Auto 19.4 % (20.5-60.0); Mean Corpuscular HGB Conc 31.9 g/dL (29.9-35.2); Mean Corpuscular Hemoglobin 28.2 pg (26.7-34.0); Mean Corpuscular Volume 88.3 fL (81.0-99.0); Mean Platelet Volume 12.9 fL (9.5-13.5); Monocytes Absolute Auto 0.3 10^3/uL (0.3-0.8); Monocytes Percent Auto 6.8 % (1.7-12.0); Neutrophils Absolute Auto 3.2 10^3/uL (1.4-6.5); Neutrophils Percent Auto 64.6 % (43.0-75.0); Platelet Count 102 10^3/uL (150-450); Red Blood Count 4.12 10^6/uL (4.20-5.40); Red Cell Distribution Width 13.2 % (11.0-15.0)
[2023-11-13 10:41] LABS: TSH W/ REFLEX FT4 2.165 uIU/mL (0.358-3.740)
== END 2023-11-13 09:01 | disposition home or self-care (01) ==
LOC: LAB 09:02
PROVIDERS: Visit Provider Family Medicine
DX: E03.9 Hypothyroidism, unspecified (principal)
CPT/HCPCS: 36415; 84443; 85025

== ENCOUNTER 2023-11-27 10:33 | Outpatient (OUT) | payer MEDICARE, MEDICAID, SELFPAY ==
--- NOTE | 2023-11-27 10:40 | MM_ITS ---
Patient Name: FRANCESCA DIAMOND MR#: [id number] : 1960 Exam Date: 11/27/2023 Ordering Doctor: DR. AYDE BOWDEN M.D. RADIOLOGY REPORT PROCEDURE: MM TOMOSYNTHESIS SCREENING BI COMPARISON: None. INDICATIONS: screening Calculator Name NCI Breast Cancer Risk Assessment Tool 5 Year Breast Cancer Risk 1.00% Lifetime Breast Cancer Risk 4.60% Personal Breast Cancer No Personal Ovarian Cancer No Treatments None Family Cancers None LOCATION: [facility] BREAST COMPOSITION: The breasts are extremely dense, which lowers the sensitivity of mammography. FINDINGS: DIAGNOSTIC CATEGORY 0--INCOMPLETE: NEED ADDITIONAL IMAGING EVALUATION. RIGHT BREAST: No significant suspicious finding. LEFT BREAST: 10 x 9 x 8 mm lobular mass within the anterior lower-inner quadrant. Spot magnification views and ultrasound evaluation recommended. RECOMMENDATIONS: ADDITIONAL MAMMOGRAPHIC VIEWS REQUIRED: LEFT BREAST - LEFT CRANIOCAUDAL SPOT MAGNIFICATION VIEW - LEFT OBLIQUE SPOT MAGNIFICATION VIEW - ULTRASOUND: LEFT BREAST PLEASE NOTE: A NORMAL MAMMOGRAM DOES NOT EXCLUDE THE POSSIBILITY OF BREAST CANCER. A CLINICALLY SUSPICIOUS PALPABLE LUMP SHOULD BE BIOPSIED. Dictated by: Fortunato Lin M.D. on 11/27/2023 at 13:00 Approved by: Fortunato Lin M.D. on 11/27/2023 at 13:34
--- OUTSIDE RECORDS SUMMARY | 2023-11-27 10:43 | XMS_ITS | CCD ---
Author Organization [facility] Care Team Providers Care Grout Worker Name Role Phone EVON, DR KOCH Admitting Unavailable MISC, DR KOCH Attending Unavailable EVON, DR KOCH Primary Care Unavailable PEREZC, DR KOCH Consulting Unavailable AYDE BLANCHARD Primary Care Physician BROOK MONTEIRO Attending Unavailable GO SHERIFF Referring Unavailable CamarenaJackelyn Unavailable Ayde Hoyos MD Primary Care Provider CURTIS NUR Attending Unavailable CURTIS NUR Attending Unavailable CURTIS NUR Attending Unavailable YOON OLIVARES Attending Unavailable Allergies Allergy Classification Reported Allergen(s) Allergy Type Date of Onset Reaction(s) Facility (2 sources) Prochlorperazine Drug Allergy 02-25-20 13 muscle twitcing [facility] Repository (5 sources) Prochlorperazine; Translations: [prochlorperazine] Drug Allergy 12-27-19 23 Temporomandibular joint locking (finding), Unknown [facility] Medications Current Medications Medication Drug Class(es) Dates Sig (Normalized) Sig (Original) cholecalciferol 0.05 mg oral capsule (3 sources) Vitamin D Start: 02-06-2023 cholecalciferol (Vitamin D-3) 50 MCG (1999 UT) capsule Take by mouth Daily. 0 02/06/2023 Active dexamethasone 1 mg/ml / neomycin 3.5 mg/ml / polymyxin b [id number] unt/ml ophthalmic suspension (1 source) Aminoglycoside Antibacterial, Polymyxin-class Antibacterial, Corticosteroid Start: 07-24-2023 take 1 drop(s) into the eye(s) four times daily Neomycin-Polymyxin- Dexameth [id number] 1 drop into affected eye Ophthalmic Four [...] 06-01-2022 BASO # 0.0 103/ul Normal 0.0-0.1 [facility] Comment on above: Performed By: #### C BC #### [facility] [address] [place] [address] Dr. Jone Plascencia Basophils/100 WBC (Bld) 0.4 % Normal 0.2-2.0 [facility] Comment on above: Performed By: #### C BC #### [facility] [address] [place] [address] Dr. Jone Plascencia EO # 0.1 103/ul Normal 0.0-0.7 [facility] Comment on above: Performed By: #### C BC #### [facility] [address] [place] [address] Dr. Jone Plascencia Eosinophils/100 WBC (Bld) 1.5 % Normal 0.9-7.0 [facility] Comment on above: Performed By: #### C BC #### [facility] [address] [place] [address] Dr. Jone Plascencia Erythrocyte distribution width (RBC) [Ratio] 13.3 % Normal 11.0-15.0 [facility] Comment on above: Performed By: #### C BC #### [facility] [address] [place] [address] Dr. Jone Plascencia Hematocrit (Bld) [Volume fraction] 38.4 % Normal 36.0-48.0 [facility] Comment on above: Performed By: #### C BC #### [facility] [address] [place] [address] Dr. Jone Plascencia Hemoglobin (Bld) [Mass/Vol] 12.4 g/dL Normal 12.0-16.0 [facility] Comment on above: Performed By: #### C BC #### [facility] [address] [place] [address] Dr. Jone Plascencia IG # 0.02 10e3/ul Normal 0.00-0.03 [facility] Comment on above: Performed By: #### C BC #### [facility] [address] [place] [address] Dr. Jone Plascencia IG % 0.4 % Normal 0.0-0.5 [facility] Comment on above: Performed By: #### C BC #### [facility] [address] [place] [address] Dr. Jone Plascencia LYMPH # 1.3 103/ul Normal 1.2-3.8 [facility] Comment on above: Performed By: #### C BC #### [facility] [address] [place] [address] Dr. Jone Plascencia Lymphocytes/100 WBC (Bld) 23.1 % Normal 20.5-60.0 [facility] Comment on above: Performed By: #### C BC #### [facility] [address] [place] [address] Dr. Jone Plascencia MANUAL DIFF REQ NO Normal [facility] Comment on above: Performed By: #### C BC #### [facility] [address] [place] [address] Dr. Jone Plascencia MCH (RBC) [Entitic mass] 28.2 pg Normal 26.7-34.0 [facility] Comment on above: Performed By: #### C BC #### [facility] [address] [place] [address] Dr. Jone Plascencia MCHC (RBC) [Mass/Vol] 32.3 g/dL Normal 29.9-35.2 [facility] Comment on above: Performed By: #### C BC #### [facility] [address] [place] [address] Dr. Jone Plascencia MCV (RBC) [Entitic vol] 87.5 fL Normal 81.0-99.0 [facility] Comment on above: Performed By: #### C BC #### [facility] [address] [place] [address] Dr. Jone Plascencia MONO # 0.4 103/ul Normal 0.3-0.8 [facility] Comment on above: Performed By: #### C BC #### [facility] [address] [place] [address] Dr. Jnoe Plascencia Monocytes/100 WBC (Bld) 7.0 % Normal 1.7-12.0 [facility] Comment on above: Performed By: #### C BC #### [facility] [address] [place] [address] Dr. Jone Plascencia NEUT # 3.7 103/ul Normal 1.4-6.5 [facility] Comment on above: Performed By: #### C BC #### [facility] [address] [place] [address] Dr. Jone Plascencia Neutrophils/100 WBC (Bld) 67.6 % Normal 43.0-75.0 [facility] Comment on above: Performed By: #### C BC #### [facility] [address] [place] [address] Dr. Jone Plascencia Platelet mean volume (Bld) [Entitic vol] 12.0 fL Normal 9.5-13.5 [facility] Comment on above: Performed By: #### C BC #### [facility] [address] [place] [address] Dr. Jone Plascencia PLT 109 103/ul Critically low 150-450 [facility] Comment on above: Performed By: #### C BC #### [facility] [address] [place] [address] Dr. Jone Plascencia RBC 4.39 106/ul Normal 4.20-5.40 [facility] Comment on above: Performed By: #### C BC #### [facility] [address] [place] [address] Dr. Jone Plascencia WBC 5.4 103/ul Normal 4.0-11.0 [facility] Comment on above: Performed By: #### C BC #### [facility] [address] [place] [address] Dr. Jone Plascencia FREE T4on 06-01-2022 Free T4 [Mass/Vol] 0.91 ng/dL Normal 0.76-1.46 [facility] Comment on above: Performed By: #### F T4 #### [facility] [address] [place] [address] Dr. Jone Plascencia LIPID PROFILEon 06-01-2022 CHOL-HDL RATIO NORM SEE BELOW Normal [facility] Comment on above: Result Comment: 3.3 - 4.4 LOW RISK 4.4 - 7.1 AVERAGE RISK 7.1 - 11.0 MODERATE RISK >11.0 HIGH RISK Performed By: #### C MP, TSH, LIPID #### [facility] [address] [address] [address] Jone Plascencia Cholesterol [Mass/Vol] 198 mg/dL Normal <=200 [facility] Comment on above: Performed By: #### C MP, TSH, LIPID #### [facility] [address] [address] [address] Jone Plascencia Cholesterol in HDL [Mass/Vol] 52 mg/dL Normal 40-60 [facility] Comment on above: Performed By: #### C MP, TSH, LIPID #### [facility] [address] [address] [address] Jone Plascencia Cholesterol in LDL [Mass/Vol] 126.2 mg/dL Normal [facility] Comment on above: Performed By: #### C MP, TSH, LIPID #### [facility] [address] [address] [address] Jone Plascencia Cholesterol.total/C holesterol in HDL [Mass ratio] 3.8 {ratio} Normal [facility] Comment on above: Performed By: #### C MP, TSH, LIPID #### [facility] [address] [address] [address] Jone Plascencia HDL NORMAL > or = 60 mg/dl - LO W CARDIOVASCULAR RISK <40 mg/dl - HIGH CARDIOVASCULAR RISK Normal [facility] Comment on above: Performed By: #### C MP, TSH, LIPID #### [facility] [address] [address] [address] Jone Plascencia LDL CALC NORMAL SEE BELOW Normal [facility] Comment on above: Result Comment: <100 mg/dl OPTIMAL 100 - 129 mg/dl NEAR OR ABOVE OPTIMAL 130 - 159 mg/dl BORDERLINE HIGH 160 - 189 mg/dl HIGH >190 mg/dl VERY HIGH Performed By: #### C MP, TSH, LIPID #### [facility] [address] [address] [address] Jone Plascencia Triglyceride [Mass/Vol] 99 mg/dL Normal <=150 [facility] Comment on above: Performed By: #### C MP, TSH, LIPID #### [facility] [address] [place] [address] Dr. Jone Plascencia VLDL CALC 19.8 mg/dL Normal [facility] Comment on above: Performed By: #### C MP, TSH, LIPID #### [facility] [address] [place] [address] Dr. Jone Plascencia PROF 14(COMP METB)on 022 Albumin [Mass/Vol] 4.0 g/dL Normal 3.4-5.0 [facility] Comment on above: Performed By: #### C MP, TSH, LIPID #### [facility] [address] [place] [address] Dr. Jone Plascencia Albumin/Globulin [Mass ratio] 1.1 {ratio} Normal [facility] Comment on above: Performed By: #### C MP, TSH, LIPID #### [facility] [address] [place] [address] Dr. Jone Plascencia ALP [Catalytic activity/Vol] 97 U/L Normal 46-116 [facility] Comment on above: Performed By: #### C MP, TSH, LIPID #### [facility] [address] [place] [address] Dr. Jone Plascencia ALT [Catalytic activity/Vol] 10 U/L Critically low 14-59 [facility] Comment on above: Performed By: #### C MP, TSH, LIPID #### [facility] [address] [place] [address] Dr. Jone Plascencia Anion gap [Moles/Vol] 9.3 mmol/L Normal [facility] Comment on above: Performed By: #### C MP, TSH, LIPID #### [facility] [address] [place] [address] Dr. Jone Plascencia AST [Catalytic activity/Vol] 10 U/L Critically low 15-37 [facility] Comment on above: Performed By: #### C MP, TSH, LIPID #### [facility] [address] [address] [address] Jone Plascencia Bilirubin [Mass/Vol] 0.5 mg/dL Normal 0.2-1.0 [facility] Comment on above: Performed By: #### C MP, TSH, LIPID #### [facility] [address] [place] [address] Dr. Jone Plascencia Calcium [Mass/Vol] 9.0 mg/dL Normal 8.5-10.1 [facility] Comment on above: Performed By: #### C MP, TSH, LIPID #### [facility] [address] [place] [address] Dr. Jone Plascencia Chloride [Moles/Vol] 105 mmol/L Normal 98-107 [facility] Comment on above: Performed By: #### C MP, TSH, LIPID #### [facility] [address] [place] [address] Dr. Jone Plascencia CO2 [Moles/Vol] 27.8 mmol/L Normal 21.0-32.0 [facility] Comment on above: Performed By: #### C MP, TSH, LIPID #### [facility] [address] [place] [address] Dr. Jone Plascencia Creatinine [Mass/Vol] 0.85 mg/dL Normal 0.55-1.02 [facility] Comment on above: Performed By: #### C MP, TSH, LIPID #### [facility] [address] [place] [address] Dr. Jone Plascencia EGFR-AF INDIAN >60 Normal >=60 [facility] Comment on above: Performed By: #### C MP, TSH, LIPID #### [facility] [address] [place] [address] Dr. Joen Plascencia EGFR-NON AF INDIAN >60 Normal >=60 [facility] Comment on above: Performed By: #### C MP, TSH, LIPID #### [facility] [address] [place] [address] Dr. Jone Plascencia Globulin (S) [Mass/Vol] 3.5 g/dL Normal [facility] Comment on above: Performed By: #### C MP, TSH, LIPID #### [facility] [address] [address] [address] Jone Plascencia Glucose [Mass/Vol] 97 mg/dL Normal 74-106 [facility] Comment on above: Performed By: #### C MP, TSH, LIPID #### [facility] [address] [address] [address] Jone Plascencia Potassium [Moles/Vol] 4.1 mmol/L Normal 3.5-5.1 [facility] Comment on above: Performed By: #### C MP, TSH, LIPID #### [facility] [address] [address] [address] Jone Plascencia Protein [Mass/Vol] 7.5 g/dL Normal 6.4-8.2 [facility] Comment on above: Performed By: #### C MP, TSH, LIPID #### [facility] [address] [place] [address] Dr. Jone Plascencia Sodium [Moles/Vol] 138 mmol/L Normal 136-145 [facility] Comment on above: Performed By: #### C MP, TSH, LIPID #### [facility] [address] [address] [address] Jone Plascencia Urea nitrogen [Mass/Vol] 10.0 mg/dL Normal 7.0-18.0 [facility] Comment on above: Performed By: #### C MP, TSH, LIPID #### [facility] [address] [address] [address] Jnoe Plascencia Urea nitrogen/Creatinine [Mass ratio] 11.8 mg/mg Normal [facility] Comment on above: Performed By: #### C MP, TSH, LIPID #### [facility] [address] [address] [address] Jone Plascencia TSHon 06-01-2022 TSH 5.908 uIU/mL Critically high 0.358-3.740 [facility] Comment on above: Performed By: #### C MP, TSH, LIPID #### [facility] [address] [place] [address] Dr. Jone Plascencia Vital Signs Date Time Vital Sign Value Performing Clinician Facility 09-06-2023 15:35-0500 Body height 154.9 cm Curtis Nur DPM Work Phone: [facility] 09-06-2023 15:35-0500 Body mass index (BMI) [Ratio] 29.85 kg/m2 Curtis Nur DPM Work Phone: [facility] 09-06-2023 15:35-0500 Body weight 71.67 kg Curtis Nur DPM Work Phone: [facility] 09-06-2023 15:35-0500 Diastolic blood pressure 75 mm[Hg] Curtis Nur DPM Work Phone: [facility] 09-06-2023 15:35-0500 Heart rate 88 /min Curtis Nur DPM Work Phone: [facility] 09-06-2023 15:35-0500 Systolic blood pressure 123 mm[Hg] Curtis Boom DPM Work Phone: [facility] 07-24-2023 17:25-0500 Body height 152.4 cm [email or web address] Other [facility] Other 07-24-2023 17:25-0500 Body mass index (BMI) [Ratio] 30.5 kg/m2 [email or web address] Other [facility] Other 07-24-2023 17:25-0500 Body temperature 98 [degF] Jackelyn Camarena Other [facility] Other 07-24-2023 17:25-0500 Body weight 70.85 kg Jackelyn Camarena Other [facility] Other 07-24-2023 17:25-0500 Respiratory rate 18 /min Jackelyn Camarena Other [facility] Other 07-24-2023 17:25-0500 SaO2% (BldA) [Mass fraction] 98 % Jackelyn Camarena Other [facility] Other Encounters Encounter Date Encounter Type Care Provider Facility Start: 11-15-2023 End: 11-15-2023 ambulatory CURTIS NUR Not Available Start: 09-06-2023 End: 09-06-2023 ambulatory CURTIS NUR [...] 07-24-2023 End: 07-24-2023 ambulatory Jackelyn Camarena Other [facility] Other Start: 07-24-2023 Office outpatient ne w 20 minutes Jackelyn Camarena [facility] Start: 07-04-2023 End: 07-04-2023 ambulatory YOON OLIVARES Not Available Start: 06-28-2023 End: 06-28-2023 ambulatory CURTIS NUR Not Available Start: 04-03-2023 End: 04-04-2023 ambulatory BROOK MONTEIRO Facility:[facility] Start: 04-03-2023 End: 04-03-2023 Patient encounter procedure BROOK MONTEIRO [facility] Start: 12-05-2022 ambulatory BROOK MONTEIRO Facility [...] Visit [facility] [address] [place] [id number] Curtis Nur DPM [address] [address] [facility] Start: 09-06-2023 End: 09-06-2023 Patient encounter procedure 09/06/2023 3:20 PM EST Procedure Visit [facility] [address] [place] [phone] Curtis Nur DPAlethea [address] [address] [facility] Start: 09-04-2023 End: 09-04-2023 Patient encounter procedure 09/04/2023 10:00 AM EST Procedure Visit [facility] Yoon Olivares MD [address] [place] [address] [facility] Payers Date Payer Category Payer Medicaid [place] [facility] [place] [id number] 2017-Present [phone] [address] [place] [address] Medicaid [id number] 1981 Medicare MEDICARE MEDICAR E PART B [id number] 1981-[place] [address] Medicare [id number] 1961 Unknown [id number] 1961 Unknown [id number] 1961 Unknown [id number] 1961 Unknown [id number] 1961 Unknown [id number] 1961 Unknown [id number] 1961 Unknown [id number] 1958 Medicaid [id number] 1958 Medicare [id number] Social History Date Type Detail Facility Tobacco smoking status [facility] Start: 07-04-2023 End: 09-06-2023 Sex Assigned At Female [facility] Start: 12-26-2022 Tobacco smoking stat us NHIS Never smoked tobacco [facility] Start: 12-26-2022 Tobacco use and exposure Smokeless tobacco non-user [facility] Start: 07-04-2023 End: 09-06-2023 Alcohol intake Ex-drinker (finding) [facility] Start: 07-04-2023 End: 09-06-2023 History of Social function [facility] Start: 01-13-2023 Education 13 [facility] Start: 01-13-2023 Alcohol Comment Caffeine intak e: 1-2 cups per day of coffee [facility] Start: 1960 Sex Assigned At Not on file [facility] History of Present illness Narrative 09-06-2023 Curtis Myers Boom, DPM - 09/06/2023 3:20 PM EST Note Date [...] loss Bipolar affective disorder, current episode manic ([facility]) 12/26/2022 Complication following bilateral mastoidectomy Drunkenness, acute, in alcoholism, with unspecified complication ([facility]) History of medical problems Mild mental retardation History of right hip replacement 12/26/2022 Osteoarthritis Other chronic pain 12/26/2022 Pain in right knee 12/26/2022 Presence of right artificial hip joint 12/26/2022 Primary osteoarthritis of both knees 12/26/2022 Right hip pain 12/26/2022 Right thigh pain 12/26/2022 Scoliosis Sensorineural hearing loss, bilateral Thyroid enlargement ([facility]) 12/26/2022 Medications: Current Outpatient Medications: cholecalciferol (Vitamin D-3) 50 MCG (1999 UT) capsule, Take by mouth Daily., Disp: , Rfl: Cyanocobalamin (Vitamin B 12) 100 MCG lozenge, Vitamin B 12, Disp: , Rfl: ergocalciferol (Vitamin D-2) 50 MCG (2000 UT) capsule, Take 1 capsule by mouth [...] Patient may continue with conservative treatments including [id number] anti-inflammatories and other treatments suggested today. Patient [...] Curtis Nur DPM documented in this encounter [facility] Healthcare Evaluation note 07-24-2023 Note Date [...] PCP or eye doctor. Documentation provided for retirement. Immediate eval if symptoms worsen, eye pain, vision changes, redness and swelling occur around the eye, headache, fever, N/V or any other concerning symptoms. Patient and caregiver verbalizes understanding and is agreeable to treatment plan. [facility] Other Hospital Discharge instructions 12-05-2022 Note Date & Type Note Facility 12-05-2022 Hospital Discharg e instructions Follow Up Care 12/05/2022 15:01:30 With:CAYETANO BURROWS, BROOK Martini, URL Address: [address] [place] [address] When: Unknown [facility] Evaluation + Plan note Note Date & Type Note Facility Evaluation + Plan note No data available for this section [facility] Evaluation note Note Date & Type [...] Surgical History hip Hospitalization History see above [facility] Other Progress note Note Date & Type Note Facility Progress note No data available for this section [facility] Summary Purpose Family History No Family History Records FoundNo Family History Records FoundNo Family History Records Found Advance Directives No Advanced Directives Records FoundNo Advanced Directives Records FoundNo Advanced Directives Records Found Additional Source Comments INFORMATION SOURCE (unrecogn ized section and content) DATE CREATED AUTHOR 06/07/2022 [facility] pital DATE CREATED AUTHOR AUTHOR'S ORGANIZ ATION 04/05/2023 [facility] DATE CREATED AUTHOR AUTHOR'S ORGANIZ ATION 11/17/2023 [facility] EPIC Patient Care team informatio n (unrecognized section and content) Grout Worker Relationship Specialty Start Date End Date Ayde Hoyos MD [address] [place] [id number] PCP - General Family Medicine 01/02/23 Grout Worker Relationship Specialty Start Date End Date Ayde Hoyos MD [address] [place] [phone] PCP - General Family Medicine 01/02/23 Grout Worker Relationship Specialty Start Date End Date Ayde Hoyos MD [address] [place] [id number] PCP - General Family Medicine 01/02/23 REASON [...] BE BASED ON THE PRIMARY CLINICAL RECORDS. [facility] [employer] [facility]. provides no warranty or guarantee of the accuracy or completeness of information in this document.
== END 2023-11-27 10:34 | disposition home or self-care (01) ==
LOC: MAMMO 10:33
PROVIDERS: Visit Provider Family Medicine
DX: Z12.31 Encounter for screening mammogram for malignant neoplasm of breast (principal); N63.24 Unspecified lump in the left breast, lower inner quadrant
CPT/HCPCS: 77063; 77067

== ENCOUNTER 2023-12-28 09:23 | Outpatient (OUT) | payer MEDICARE, MEDICAID, SELFPAY ==
--- NOTE | 2023-12-28 09:26 | US_ITS ---
Patient Name: FRANCESCA DIAMOND MR#: [id number] : 1960 Exam Date: 12/28/2023 Ordering Doctor: DR. AYDE BOWDEN M.D. RADIOLOGY REPORT PROCEDURE: MM DIAGNOSTIC MAMMO UNILAT LT, 12/28/2023, 09:28 US BREAST LT LIMITED, 12/28/2023, 10:16 COMPARISON: MM TOMOSYNTHESIS SCREENING BI, 11/27/2023. INDICATIONS: Breast mass in female N63.0 Calculator Name NCI Breast Cancer Risk Assessment Tool 5 Year Breast Cancer Risk 1.00% Lifetime Breast Cancer Risk 4.60% Personal Breast Cancer No Personal Ovarian Cancer No Treatments None Family Cancers None LOCATION: [facility] BREAST COMPOSITION: The breasts are extremely dense, which lowers the sensitivity of mammography. FINDINGS: DIAGNOSTIC CATEGORY 4--SUSPICIOUS FOR MALIGNANCY. FINDING DOES NOT EXHIBIT CLASSIC FINDINGS OF BREAST CANCER: LEFT BREAST: Spot magnification views demonstrate persistence of a lobular 10 mm mass within the lower-inner quadrant. Ultrasound evaluation demonstrates a 14 x 11 x 9 mm lobular heterogeneous hypoechoic mass which is taller than wide and demonstrates internal blood flow. Ultrasound-guided core biopsy of the mass is recommended. RECOMMENDATIONS: ULTRASOUND-GUIDED CORE BIOPSY: LEFT BREAST PLEASE NOTE: A NORMAL MAMMOGRAM DOES NOT EXCLUDE THE POSSIBILITY OF BREAST CANCER. A CLINICALLY SUSPICIOUS PALPABLE LUMP SHOULD BE BIOPSIED. Dictated by: Fortunato Lin M.D. on 12/28/2023 at 10:52 Approved by: Fortunato Lin M.D. on 12/28/2023 at 11:05
--- OUTSIDE RECORDS SUMMARY | 2023-12-28 09:44 | XMS_ITS | CCD ---
Author Organization [facility] Informat ion Partnership [facility] Care Team Providers Care Graphic Technician Name Role Phone PEREZC, DR KOCH Admitting Unavailable MISC, DR KOCH Attending Unavailable MISC, DR KOCH Primary Care Unavailable MISC, DR KOCH Consulting Unavailable AYDE BLANCHARD Primary Care Physician BROOK MONTEIRO Attending Unavailable GO SHERIFF Referring Unavailable Jackelyn Camarena Unavailable Ayde Hoyos MD Primary Care Provider CURTIS NUR Attending Unavailable CURTIS NUR Attending Unavailable CURTIS NUR Attending Unavailable DOUGLAS VANCE Attending Unavailable YOON OLIVARES Attending Unavailable YONO OLIVARES Attending Unavailable YOON OLIVARES Attending Unavailable Allergies Allergy Classification Reported Allergen(s) Allergy Type Date of Onset Reaction(s) Facility (2 sources) Prochlorperazine Drug Allergy 02-25-20 13 muscle twitcing [facility] Repository (5 sources) Prochlorperazine; Translations: [prochlorperazine] Drug Allergy 12-27-19 23 Temporomandibular joint locking (finding), Unknown [facility] Medications Current Medications Medication Drug Class(es) Dates Sig (Normalized) Sig (Original) cholecalciferol 0.05 mg oral capsule (3 sources) Vitamin D Start: 02-06-2023 cholecalciferol (Vitamin D-3) 50 MCG (1999) capsule Take by mouth Daily. 0 02/06/2023 Active dexamethasone 1 mg/ml / neomycin 3.5 mg/ml / polymyxin b [id number] unt/ml ophthalmic suspension (1 source) Aminoglycoside Antibacterial, Polymyxin-class Antibacterial, Corticosteroid Start: 07-24-2023 take 1 drop(s) into the eye(s) four times daily Neomycin-Polymyxin- Dexameth [id number] 1 drop into affected eye Ophthalmic Four times a day for 5 days Jul, Active ergocalciferol 0.05 mg oral capsule (3 sources) Provitamin D2 Compound Start: 03-20-2023 take 1 capsule by mouth in the morning ergocalciferol (Vitamin D-2) 50 MCG (1999 [place]) capsule Take 1 capsule by mouth in [...] Status: Ordered take 1 tablet by shy every twenty-four hours SEROquel 100 MG 1 [...] 06-01-2022 BASO # 0.0 103/ul Normal 0.0-0.1 [facility] Comment on above: Performed By: #### C BC #### [facility] [address] [address] [address] Jone Plascencia Basophils/100 WBC (Bld) 0.4 % Normal 0.2-2.0 [facility] Comment on above: Performed By: #### C BC #### [facility] [address] [address] [address] Jone Plascencia EO # 0.1 103/ul Normal 0.0-0.7 [facility] Comment on above: Performed By: #### C BC #### [facility] [address] [place] [address] Dr. Jone Plascencia Eosinophils/100 WBC (Bld) 1.5 % Normal 0.9-7.0 [facility] Comment on above: Performed By: #### C BC #### [facility] [address] [address] [address] Jone Plascencia Erythrocyte distribution width (RBC) [Ratio] 13.3 % Normal 11.0-15.0 [facility] Comment on above: Performed By: #### C BC #### [facility] [address] [place] [address] Dr. Jone Plascencia Hematocrit (Bld) [Volume fraction] 38.4 % Normal 36.0-48.0 [facility] Comment on above: Performed By: #### C BC #### [facility] [address] [address] [address] Jone Plascencia Hemoglobin (Bld) [Mass/Vol] 12.4 g/dL Normal 12.0-16.0 [facility] Comment on above: Performed By: #### C BC #### [facility] [address] [place] [address] Dr. Jone Plascencia IG # 0.02 10e3/ul Normal 0.00-0.03 [facility] Comment on above: Performed By: #### C BC #### [facility] [address] [place] [address] Dr. Jone Plascencia IG % 0.4 % Normal 0.0-0.5 [facility] Comment on above: Performed By: #### C BC #### [facility] [address] [place] [address] Dr. Jone Plascencia LYMPH # 1.3 103/ul Normal 1.2-3.8 [facility] Comment on above: Performed By: #### C BC #### [facility] [address] [place] [address] Dr. Jone Plascencia Lymphocytes/100 WBC (Bld) 23.1 % Normal 20.5-60.0 [facility] Comment on above: Performed By: #### C BC #### [facility] [address] [place] [address] Dr. Jone Plascencia MANUAL DIFF REQ NO Normal [facility] Comment on above: Performed By: #### C BC #### [facility] [address] [place] [address] Dr. Jone Plascencia MCH (RBC) [Entitic mass] 28.2 pg Normal 26.7-34.0 [facility] Comment on above: Performed By: #### C BC #### [facility] [address] [place] [address] Dr. Jone Plascencia MCHC (RBC) [Mass/Vol] 32.3 g/dL Normal 29.9-35.2 [facility] Comment on above: Performed By: #### C BC #### [facility] [address] [place] [address] Dr. Jone Plascencia MCV (RBC) [Entitic vol] 87.5 fL Normal 81.0-99.0 [facility] Comment on above: Performed By: #### C BC #### [facility] [address] [place] [address] Dr. Jone Plascencia MONO # 0.4 103/ul Normal 0.3-0.8 [facility] Comment on above: Performed By: #### C BC #### [facility] [address] [place] [address] Dr. Jone Plascencia Monocytes/100 WBC (Bld) 7.0 % Normal 1.7-12.0 [facility] Comment on above: Performed By: #### C BC #### [facility] [address] [place] [address] Dr. Jone Plascencia NEUT # 3.7 103/ul Normal 1.4-6.5 [facility] Comment on above: Performed By: #### C BC #### [facility] [address] [place] [address] Dr. Jone Plascencia Neutrophils/100 WBC (Bld) 67.6 % Normal 43.0-75.0 [facility] Comment on above: Performed By: #### C BC #### [facility] [address] [place] [address] Dr. Jone Plascencia Platelet mean volume (Bld) [Entitic vol] 12.0 fL Normal 9.5-13.5 [facility] Comment on above: Performed By: #### C BC #### [facility] [address] [place] [address] Dr. Jone Plascencia PLT 109 103/ul Critically low 150-450 [facility] Comment on above: Performed By: #### C BC #### [facility] [address] [place] [address] Dr. Jone Plascencia RBC 4.39 106/ul Normal 4.20-5.40 [facility] Comment on above: Performed By: #### C BC #### [facility] [address] [place] [address] Dr. Jone Plascencia WBC 5.4 103/ul Normal 4.0-11.0 [facility] Comment on above: Performed By: #### C BC #### [facility] [address] [place] [address] Dr. Jone Plascencia FREE T4on 06-01-2022 Free T4 [Mass/Vol] 0.91 ng/dL Normal 0.76-1.[address] [facility] Comment on above: Performed By: #### F T4 #### [facility] [address] [address] [address] Jone Plascencia LIPID PROFILEon 06-01-2022 CHOL-HDL RATIO NORM SEE BELOW Normal [facility] Comment on above: Result Comment: 3.3 - 4.4 LOW RISK 4.4 - 7.1 AVERAGE RISK 7.1 - 11.0 MODERATE RISK >11.0 HIGH RISK Performed By: #### C MP, TSH, LIPID #### [facility] [address] [address] [address] Jone Plascencia Cholesterol [Mass/Vol] 198 mg/dL Normal <=200 [facility] Comment on above: Performed By: #### C MP, TSH, LIPID #### [facility] [address] [address] [address] Jone Plascencia Cholesterol in HDL [Mass/Vol] 52 mg/dL Normal 40-60 [facility] Comment on above: Performed By: #### C MP, TSH, LIPID #### [facility] [address] [address] [address] Jone Plascencia Cholesterol in LDL [Mass/Vol] 126.2 mg/dL Normal [facility] Comment on above: Performed By: #### C MP, TSH, LIPID #### [facility] [address] [address] [address] Jone Plascencia Cholesterol.total/C holesterol in HDL [Mass ratio] 3.8 {ratio} Normal [facility] Comment on above: Performed By: #### C MP, TSH, LIPID #### [facility] [address] [address] [address] Jone Plascencia HDL NORMAL > or = 60 mg/dl - LO W CARDIOVASCULAR RISK <40 mg/dl - HIGH CARDIOVASCULAR RISK Normal [facility] Comment on above: Performed By: #### C MP, TSH, LIPID #### [facility] [address] [place] [address] Dr. Jone Plascencia LDL CALC NORMAL SEE BELOW Normal [facility] Comment on above: Result Comment: <100 mg/dl OPTIMAL 100 - 129 mg/dl NEAR OR ABOVE OPTIMAL 130 - 159 mg/dl BORDERLINE HIGH 160 - 189 mg/dl HIGH >190 mg/dl VERY HIGH Performed By: #### C MP, TSH, LIPID #### [facility] [address] [address] [address] Jone Plascencia Triglyceride [Mass/Vol] 99 mg/dL Normal <=150 [facility] Comment on above: Performed By: #### C MP, TSH, LIPID #### [facility] [address] [place] [address] Dr. Jone Plascencia VLDL CALC 19.8 mg/dL Normal [facility] Comment on above: Performed By: #### C MP, TSH, LIPID #### [facility] [address] [address] [address] Jone Plascencia PROF 14(COMP METB)on 022 Albumin [Mass/Vol] 4.0 g/dL Normal 3.4-5.[address] [facility] Comment on above: Performed By: #### C MP, TSH, LIPID #### [facility] [address] [place] [address] Dr. Jone Plascencia Albumin/Globulin [Mass ratio] 1.1 {ratio} Normal [facility] Comment on above: Performed By: #### C MP, TSH, LIPID #### [facility] [address] [place] [address] Dr. Jone Plascencia ALP [Catalytic activity/Vol] 97 U/L Normal 46-116 [facility] Comment on above: Performed By: #### C MP, TSH, LIPID #### [facility] [address] [address] [address] Jone Plascencia ALT [Catalytic activity/Vol] 10 U/L Critically low 14-59 [facility] Comment on above: Performed By: #### C MP, TSH, LIPID #### [facility] [address] [address] [address] Jone Plascencia Anion gap [Moles/Vol] 9.3 mmol/L Normal [facility] Comment on above: Performed By: #### C MP, TSH, LIPID #### [facility] [address] [address] [address] Jone Plascencia AST [Catalytic activity/Vol] 10 U/L Critically low 15-37 [facility] Comment on above: Performed By: #### C MP, TSH, LIPID #### [facility] [address] [address] [address] Jone Plascencia Bilirubin [Mass/Vol] 0.5 mg/dL Normal 0.2-1.0 [facility] Comment on above: Performed By: #### C MP, TSH, LIPID #### [facility] [address] [place] [address] Dr. Jone Plascencia Calcium [Mass/Vol] 9.0 mg/dL Normal 8.5-10.[address] [facility] Comment on above: Performed By: #### C MP, TSH, LIPID #### [facility] [address] [place] [address] Dr. Jone Plascencia Chloride [Moles/Vol] 105 mmol/L Normal 98-107 [facility] Comment on above: Performed By: #### C MP, TSH, LIPID #### [facility] [address] [place] [address] Dr. Jone Plascencia CO2 [Moles/Vol] 27.8 mmol/L Normal 21.0-32.0 [facility] Comment on above: Performed By: #### C MP, TSH, LIPID #### [facility] [address] [place] [address] Dr. Jone Plascencia Creatinine [Mass/Vol] 0.85 mg/dL Normal 0.55-1.02 [facility] Comment on above: Performed By: #### C MP, TSH, LIPID #### [facility] [address] [place] [address] Dr. Jone Plascencia EGFR-AF EQUATORIAL GUINEAN >60 Normal >=60 [facility] Comment on above: Performed By: #### C MP, TSH, LIPID #### [facility] [address] [place] [address] Dr. Jone Plascencia EGFR-NON AF EQUATORIAL GUINEAN >60 Normal >=60 [facility] Comment on above: Performed By: #### C MP, TSH, LIPID #### [facility] [address] [place] [address] Dr. Jone Plascencia Globulin (S) [Mass/Vol] 3.5 g/dL Normal [facility] Comment on above: Performed By: #### C MP, TSH, LIPID #### [facility] [address] [place] [address] Dr. Jone Plascencia Glucose [Mass/Vol] 97 mg/dL Normal 74-106 [facility] Comment on above: Performed By: #### C MP, TSH, LIPID #### [facility] [address] [place] [address] Dr. Jone Plascencia Potassium [Moles/Vol] 4.1 mmol/L Normal 3.5-5.1 [facility] Comment on above: Performed By: #### C MP, TSH, LIPID #### [facility] [address] [place] [address] Dr. Jone Plascencia Protein [Mass/Vol] 7.5 g/dL Normal 6.4-8.2 [facility] Comment on above: Performed By: #### C MP, TSH, LIPID #### [facility] [address] [place] [address] Dr. Jone Plascencia Sodium [Moles/Vol] 138 mmol/L Normal 136-145 [facility] Comment on above: Performed By: #### C MP, TSH, LIPID #### [facility] [address] [place] [address] Dr. Jone Plascencia Urea nitrogen [Mass/Vol] 10.0 mg/dL Normal 7.0-18.0 [facility] Comment on above: Performed By: #### C MP, TSH, LIPID #### [facility] [address] [place] [address] Dr. Jone Plascencia Urea nitrogen/Creatinine [Mass ratio] 11.8 mg/mg Normal [facility] Comment on above: Performed By: #### C MP, TSH, LIPID #### [facility] [address] [place] [address] Dr. Jone Plascencia TSHon 06-01-2022 TSH 5.908 uIU/mL Critically high 0.358-3.740 [facility] Comment on above: Performed By: #### C MP, TSH, LIPID #### [facility] [address] [place] [address] Dr. Jone Plascecnia Vital Signs Date Time Vital Sign Value Performing Clinician Facility 09-06-2023 15:35-0500 Body height 154.9 cm Curtis Boom DPM Work Phone: [facility] 09-06-2023 15:35-0500 Body mass index (BMI) [Ratio] 29.85 kg/m2 Curtis Nur DPM Work Phone: [facility] 09-06-2023 15:35-0500 Body weight 71.67 kg Curtismarbella Nur DPM Work Phone: [facility] 09-06-2023 15:35-0500 Diastolic blood pressure 75 mm[Hg] Curtis Nur DPM Work Phone: [facility] 09-06-2023 15:35-0500 Heart rate 88 /min Curtis Boom DPM Work Phone: [facility] 09-06-2023 15:35-0500 Systolic blood pressure 123 mm[Hg] Curtis Brown DPM Work Phone: [facility] 07-24-2023 17:25-0500 Body height 152.4 cm Jackelyn Camarena Other [employer] Other 07-24-2023 17:25-0500 Body mass index (BMI) [Ratio] 30.5 kg/m2 Jackelyn Camarena Other [employer] Other 07-24-2023 17:25-0500 Body temperature 98 [degF] Jackelyn Camarena Other [employer] Other 07-24-2023 17:25-0500 Body weight 70.85 kg Jackelyn Camarena Other [employer] Other 07-24-2023 17:25-0500 Respiratory rate 18 /min Jackelyn Camarena Other [employer] Other 07-24-2023 17:25-0500 SaO2% (BldA) [Mass fraction] 98 % Jackelyn Camarena Other [employer] Other Encounters Encounter Date Encounter Type Care Provider Facility Start: 12-25-2023 End: 12-25-2023 ambulatory YOON H TIMMIS Not Available Start: 12-11-2023 End: 12-11-2023 ambulatory YOON H TIMMIS Not Available Start: 12-05-2023 End: 12-05-2023 ambulatory DOUGLAS VANCE Not Available Start: 11-15-2023 End: 11-15-2023 ambulatory CURTIS NUR [...] Yoon moody MD Work Phone: [facility] Start: 07-24-2023 End: 07-24-2023 ambulatory Jackelyn Camarena Other [employer] Other Start: 07-24-2023 Office outpatient ne w 20 minutes Jackelny Camarena [facility] Start: 07-04-2023 End: 07-04-2023 ambulatory YOON H TIMMIS Not Available Start: 06-28-2023 End: 06-28-2023 ambulatory CURTIS NUR Not Available Start: 04-03-2023 End: 04-04-2023 ambulatory BROOK MONTEIRO Facility:[facility] Start: 04-03-2023 End: 04-03-2023 Patient encounter procedure BROOK MONTEIRO [facility] Start: 12-05-2022 ambulatory BROOK MONTEIRO [facility] Start: 06-01-2022 End: 06-02-[address] DOCTOR [...] [facility] [address] [place] [address] Curtis Nur DPM [address] [facility] [address] [place] [address] [facility] Start: 09-06-2023 End: 09-06-2023 Patient encounter procedure 09/06/2023 3:20 PM EST Procedure Visit [facility] [address] [place] [address] Curtis Nur DPM [address] [facility] [address] [place] [address] [facility] Start: 09-04-2023 End: 09-04-2023 Patient encounter procedure 09/04/2023 10:00 AM EST Procedure Visit [facility] Yoon Olivares MD [address] [place] [address] [facility] Payers Date Payer Category Payer Medicaid MEDICAID [facility] [id number] 2017-Present [phone] [address] [place] [address] Medicaid [id number] 1981 Medicare MEDICARE MEDICAR E PART B [id number] 1980-[place] [address] Medicare [id number] 1961 Unknown [id number] 1961 Unknown [id number] 1961 Unknown [id number] 1961 Unknown [id number] 1961 Unknown [id number] 1961 Unknown [id number] [id number] 1961 Unknown [id number] 1961 Unknown [id number] [id number] 1961 Unknown [id number] 1961 Unknown [id number] 1958 Medicaid [id number] 1958 Medicare [id number] Social History Date Type Detail Facility Tobacco smoking status [facility] Start: 07-04-2023 End: 09-06-2023 Sex Assigned At Female [facility] Start: 12-26-2022 Tobacco smoking stat us [...] of Present illness Narrative 09-06-2023 Curtis Nur, DPM - 09/06/2023 3:20 PM EST Note [...] loss Bipolar affective disorder, current episode manic ([facility]) 12/26/2022 Complication following bilateral mastoidectomy Drunkenness, acute, in alcoholism, with unspecified complication (CMS/HCC) History of medical problems Mild mental retardation History of right hip replacement 12/26/2022 Osteoarthritis Other chronic pain 12/26/2022 Pain in right knee 12/26/2022 Presence of right artificial hip joint 12/26/2022 Primary osteoarthritis of both knees 12/26/2022 Right hip pain 12/26/2022 Right thigh pain 12/26/2022 Scoliosis Sensorineural hearing loss, bilateral Thyroid enlargement (CMS/HCC) 12/26/2022 Medications: Current Outpatient Medications: cholecalciferol (Vitamin D-3) 50 MCG (1999) capsule, Take by mouth Daily., Disp: , Rfl: Cyanocobalamin (Vitamin B 12) 100 MCG lozenge, Vitamin B 12, Disp: , Rfl: ergocalciferol (Vitamin D-2) 50 MCG (1999) capsule, Take 1 capsule by mouth in [...] Patient may continue with conservative treatments including [id number] anti-inflammatories and other treatments suggested today. Patient [...] Curtis Nur DPM documented in this encounter [facility] Healthcare Evaluation note 07-24-2023 Note Date & [...] PCP or eye doctor. Documentation provided for senior care. Immediate eval if symptoms worsen, eye pain, vision changes, redness and swelling occur around the eye, headache, fever, N/V or any other concerning symptoms. Patient and caregiver verbalizes understanding and is agreeable to treatment plan. [employer] Other Hospital Discharge instructions 12-05-2022 Note Date & Type Note Facility 12-05-2022 Hospital Discharg e instructions Follow Up Care 12/05/2022 15:01:30 With:BROOK MONTEIRO PA-C, URL Address: [address] [place] [address] When: Unknown [facility] Evaluation + Plan note Note Date & Type Note Facility Evaluation + Plan note No data available for this section [facility] Evaluation note Note Date & Type [...] Surgical History hip Hospitalization History see above [employer] Other Progress note Note Date & Type Note Facility Progress note No data available for this section [facility] Summary Purpose Family History No Family History Records FoundNo Family History Records FoundNo Family History Records Found Advance Directives No Advanced Directives Records FoundNo Advanced Directives Records FoundNo Advanced Directives Records Found Additional Source Comments INFORMATION SOURCE (unrecogn ized section and content) DATE CREATED AUTHOR 06/07/2022 [facility] DATE CREATED AUTHOR AUTHOR'S ORGANIZ ATION 04/05/2023 [facility] DATE CREATED AUTHOR AUTHOR'S ORGANIZ ATION 12/26/2023 [facility] EPIC Patient Care team informatio n (unrecognized section and content) Graphic Technician Relationship Specialty Start Date End Date Ayde Hoyos MD [address] [place] [address] PCP - General Family Medicine 01/02/23 Graphic Technician Relationship Specialty Start Date End Date Adye Hoyos MD [address] [place] [id number] PCP - General Family Medicine 01/02/23 Graphic Technician Relationship Specialty Start Date End Date Ayde Hoyos MD [facility] [place] [address] PCP - General Family Medicine 01/02/23 REASON [...] BE BASED ON THE PRIMARY CLINICAL RECORDS. [employer] [facility]. provides no warranty or guarantee of the accuracy or completeness of information in this document.
== END 2023-12-28 09:24 | disposition home or self-care (01) ==
LOC: MAMMO 09:23
PROVIDERS: Visit Provider Family Medicine
DX: N63.24 Unspecified lump in the left breast, lower inner quadrant (principal)
CPT/HCPCS: 76642; 77065

== ENCOUNTER 2024-01-07 08:51 | Day surgery (SDC) | payer MEDICARE, MEDICAID, SELFPAY ==
--- NOTE | 2024-01-07 08:56 | MM_ITS ---
Patient Name: FRANCESCA DIAMOND MR#: [id number] : 1960 Exam Date: 01/07/2024 Ordering Doctor: DR. AYDE BOWDEN M.D. RADIOLOGY REPORT PROCEDURE: MM POST BIOPSY LT COMPARISON: US BREAST VAC BX W/ CLIP LT, 01/07/2024. MM DIAGNOSTIC MAMMO UNILAT LT, 12/28/2023. MM TOMOSYNTHESIS SCREENING BI, 11/27/2023. INDICATIONS: Left Breast Mass BREAST COMPOSITION: FINDINGS: Post-Procedure Mammogram for Marker Placement BIOPSY MARKER: A metallic marker has been placed in the targeted location within the lower-inner quadrant, approximately 9 o'clock position, of the left breast. BREAST FINDINGS: Expected post biopsy findings. RECOMMENDATIONS: Dictated by: Fortunato Lin M.D. on 01/07/2024 at 14:07 Approved by: Fortunato Lin M.D. on 01/07/2024 at 14:09
--- NOTE | 2024-01-07 08:56 | US_ITS ---
[address] [address] Patient Name: FRANCESCA DIAMOND MRN: [id number] date: 1960 Sex: F Assigned Patient Location: US Current Patient Location: US Accession/Order Number: [id number] Exam Date: 01/07/2024 09:00 Report Date: 01/07/2024 10:13 At the request of: AYDE BOWDEN Procedure: US breast vac bx w/ clip LT EXAM: US breast vac bx w/ clip LT HISTORY: Left Breast Mass COMPARISON: Ultrasound breast left 12/28/2023 TECHNIQUE: After obtaining informed consent, ultrasound-guided biopsy was performed in the usual sterile manner. The location of the biopsy was then marked as indicated below. FINDINGS: Specimen #, Location: 4 core samples; left breast 9:00 hypoechoic lobular shadowing mass. Biopsy Needle: 13 gauge vacuum core biopsy needle. Marker(s): A single metallic marker was placed in the appropriate targeted location. Medication: Buffered 1% Lidocaine with epinephrine administered locally. Complications: None. Pathology: Pending. US/US breast vac bx w/ clip LT IMPRESSION: 1. Uneventful ultrasound-guided breast biopsy. 2. Pathology results are pending. An addendum to this report will be provided after pathology results are available. Electronically authenticated by: PAZ WHITMORE Date: 01/07/2024 10:13
[2024-01-07 09:00] VITALS: BP 137/102; PULSE 104; O2SAT 94
[2024-01-07] MEDS: LIDOCAINE HCL 10 ML, SODIUM BICARBONATE 1 MEQ INJ (09:40)
[2024-01-07] MEDS: LIDOCAINE HCL/EPINEPHRINE 10 ML, SODIUM BICARBONATE 1 MEQ INJ (09:40)
--- NOTE | 2024-01-07 10:52 | SUR.PREOP ---
12/31/23 Spoke with caregiver Ida at [facility] to schedule. Caregiver states that she will need an antianxiety medication as pt has siginificant fear of needles. Spoke with pt mother Uyen Jin to get consent over the phone for procedure and she confirmed that pt will need antianxiety med. Phone nurse with [facility] office for orders and antianxiety medication. She confirmed that Dr Bob Hoyos is retiring and Adrian STEVENSON will be the ordering person.
== END 2024-01-07 10:25 | disposition home or self-care (01) ==
LOC: US 08:52
PROVIDERS: Radiology Diagnostic Radiology; Visit Provider Family Medicine
DX: N63.25 Unspecified lump in the left breast, overlapping quadrants (principal)
CPT/HCPCS: 19083; 77065; 88305

== ENCOUNTER 2024-06-27 08:43 | Outpatient (OUT) | payer MEDICARE, MEDICAID, SELFPAY ==
--- NOTE | 2024-06-27 08:53 | CT_ITS ---
The [address] [address] Patient Name: FRANCESCA DIAMOND MRN: [id number] date: 1960 Sex: F Assigned Patient Location: CT Current Patient Location: CT Accession/Order Number: [id number] Exam Date: 06/27/2024 09:05 Report Date: 06/27/2024 10:08 At the request of: JUAN TAY Procedure: CT head/brain wo con EXAMINATION: CT head/brain wo con 06/27/2024 9:05 AM EST HISTORY: Cognitive Impairment, Family History Dementia, Developmental COMPARISON: None. TECHNIQUE: Using multidetector thin collimation helical acquisition technique, axial, coronal and sagittal CT images from the skull base to the vertex were obtained without intravenous contrast. Dose reduction techniques were achieved by using automated exposure control and/or adjustment of mA and/or kV according to patient size and/or use of iterative reconstruction technique. FINDINGS: No intracranial hemorrhage, mass effect, or midline shift. The ventricles are proportionate to the cerebral sulci. The brandt to white matter differentiation of the cerebral hemispheres is preserved. The basal cisterns are patent. There is moderate generalized cerebral atrophy, which appears somewhat parietal lobe predominant. Moderate to heavy patchy areas of low attenuation change throughout the white matter. The visualized paranasal sinuses are clear. The mastoid air cells are clear. CT/CT head/brain wo con IMPRESSION: No acute intracranial pathology. Moderate cerebral atrophy as above. Moderate to heavy patchy low-attenuation changes in the white matter, possibly related to chronic small vessel ischemic disease or subcortical arteriosclerotic encephalopathy. Electronically authenticated by: JUAN BHAKTA Date: 06/27/2024 10:08
--- OUTSIDE RECORDS SUMMARY | 2024-06-27 08:56 | XMS_ITS | CCD ---
Author Organization [facility] Care Team Providers Care [employer] Director Name Role Phone PEREZC, DR KOCH Admitting Unavailable MISC, DR KOCH Attending Unavailable MISC, DR KOCH Primary Care Unavailable MISC, DR KOCH Consulting Unavailable AYDE BLANCHARD Primary Care Physician [phone] BROOK MONTEIRO Attending Unavailable SHAMMO, GO Referring Unavailable Jackelyn Camarena Unavailable Ayde Hoyos MD Primary Care Provider MD Fortunato Lin Attending Provider CURTIS NUR Attending Unavailable CURTIS NUR Attending Unavailable PINKYDOUGLAS A Attending Unavailable TIMMISYOON Attending Unavailable TIMMISBRAVOYOON H Attending Unavailable CURTIS NUR A Attending Unavailable BROWN, CURTIS A Attending Unavailable TIMMIS, YOON H Attending Unavailable PINKY, DOUGLAS A Attending Unavailable PINKY, DOUGLAS A Attending Unavailable PINKY, DOUGLAS A Attending Unavailable PINKY, DOUGLAS A Attending Unavailable PINKY, DOUGLAS A Attending Unavailable JUAN HOLLIS Attending Unavailable ANDRIY RENDON Attending Unavailable RIDGE, YUNIOR Referring Unavailable RIDGE, YUINOR Primary Care Unavailable NO FAMILY, PHYSICIAN Primary Care Provider Unava ilable MD Bart Rodríguez Admit Provider MD Bart Rodríguez Attending Provider NO FAMILY, PHYSICIAN Primary Care Unavailable Josh Castillo Attending Unavailable Bart Rodríguez Admitting Unavailab Fortunato Murphy Admitting Unavailable Fortunato Lin Attending Unavailable Bart Rodríguez Attending Unavailab le NO FAMILY, PHYSICIAN Primary Care Unavailable Bart Rodríguez Admitting Unavailab le Allergies Allergy Classification Reported Allergen(s) Allergy Type Date of Onset Reaction(s) Facility (2 sources) Prochlorperazine Drug Allergy 013 muscle twitcing [facility] Repository (8 sources) Prochlorperazine; Translations: [prochlorperazine] Drug Allergy 023 Temporomandibular joint locking (finding), Unknown [facility] (1 source) PROCHLORPERAZINE EDISYLATE; Translations: [PROCHLORPERAZINE EDISYLATE] Propensity to adverse reactions to drug (disorder) 017 [facility] Repository (1 source) Prochlorperazine Drug Allergy 024 [facility] Repository Medications Current Medications Medication Drug Class(es) Dates Sig (Normalized) Sig (Original) ARIPiprazole 5 mg oral tablet (1 source) Atypical Antipsychotic Start: 05-20-2024 take 5 mg by mouth once daily at bedtime Aripiprazole Active 5 MG PO Daily at bedtime May 20, 2024 12:00am cholecalciferol 0.05 mg oral capsule (3 sources) Vitamin D Start: 02-06-2023 cholecalciferol (Vitamin D-3) 50 MCG (2000 UT) capsule Take by mouth Daily. 0 02/06/2023 Active dexamethasone 1 mg/ml / neomycin 3.5 mg/ml / polymyxin b 02139 unt/ml ophthalmic suspension (1 source) Aminoglycoside Antibacterial, Polymyxin-class Antibacterial, Corticosteroid Start: 07-24-2023 take 1 drop(s) into the eye(s) four times daily Neomycin-Polymyxin- Dexameth [id number] 1 drop into affected eye Ophthalmic Four times a day for 5 days Jul, Active ergocalciferol 0.05 mg oral capsule (7 sources) Provitamin D2 Compound Start: 05-14-2024 take 50 ug by mouth once daily Ergocalciferol (Vitamin D2) Active 50 MCG PO Daily May 14, 2024 12:00am Start: 03-20-2023 take 1 capsule by mo uth in the morning ergocalciferol (Vitamin D-2) 50 MCG (1999 UT) capsule Take 1 capsule by mouth in the morning. 03/20/2023 Active hydrOXYzine hydrochloride 10 mg oral tablet (3 sources) Antihistamine Start: 05-14-2024 take 10 mg by mouth twice daily Hydroxyzine Hcl Active 10 MG PO Twice daily May 14, 2024 12:00am hydrOXYzine HCl (Atarax) 10 MG tablet Take 10 mg by mouth every 12 (twelve) hours if needed for itching Active levothyroxine sodium 0.05 mg oral tablet (4 sources) l-Thyroxine Start: 05-14-2024 take 50 ug by mouth once daily Levothyroxine Active 50 MCG PO Daily at 0630 May 14, 2024 12:00am take 1 tablet by mouth before me altime levothyroxine (Synthroid, Levoxyl) 50 MCG tablet Take 50 mcg by mouth in the morning. Take before meals. Active magnesium oxide 250 mg oral tablet (3 sources) Start: 05-14-2024 take 250 mg by mouth once daily Magnesium Oxide Active 250 MG PO Daily May 14, 2024 12:00am magnesium oxide (Mag-Ox) 400 mg tablet Take 200 mg by mouth Daily Active omeprazole 20 mg delayed release oral capsule (4 sources) Proton Pump Inhibitor Start: 05-14-2024 take 20 mg by mouth once daily Omeprazole Active 20 MG PO Daily May 14, 2024 12:00am take 1 tablet by mouth before me altime omeprazole OTC (PriLOSEC OTC) 20 MG EC tablet Take 20 mg by mouth in the morning. Take before meals. Do not crush, chew, or split.. Active 24 hr oxybutynin chloride 5 mg extended release oral tablet (1 source) Cholinergic Muscarinic Antagonist Start: 01-11-2023 oxybutynin 5 mg ER Tab Refills(s) 0 Start Date: 01/11/23 Status: Ordered QUEtiapine 100 mg oral tablet (10 sources) Atypical Antipsychotic Start: 05-14-2024 take 1 tablet by mouth twice daily Quetiapine (Seroquel) 100 mg tablet Active 100 MG PO Twice daily May 14, 2024 12:00am Start: 01-11-2023 quetiapine 100 mg Tab Refills(s) 0 Start Date: 01/11/23 Status: Ordered take 1 tablet by shy th every twenty-four hours SEROquel 100 MG 1 tablet at bedtime Orally Once a day Not-Taking/PRN sertraline 100 mg oral tablet (6 sources) Serotonin Reuptake Inhibitor Start: 05-14-2024 take 1 tablet by mouth once daily, then take 0.5 tablet by mouth once daily Sertraline (Zoloft) 100 mg tablet Active 150 MG PO Daily May 14, 2024 12:00am [employer] and 1/2 tablet Orally Once a day; Note: Source Status: Taking; Refills: 4; Provider: Marc Alexander Start: 01-20-2020 sertraline 100 mg Tab Refills(s) 0 Start Date: 01/11/23 Status: Ordered sertraline (Zolo ft) 100 MG tablet Take 150 mg by mouth 1 (one) time each day at the same time. 0 Active traZODone hydrochloride 50 mg oral tablet (1 source) Serotonin Reuptake Inhibitor Start: 05-20-2024 take 50 mg by mouth once daily at bedtime Trazodone Active 50 MG PO Daily at bedtime May 20, 2024 12:00am vitamin b12 0.1 mg oral lozenge (3 sources) Vitamin B12 Cyanocobalamin (Vitamin B 12) 100 MCG lozenge Vitamin B 12 0 Active Vitamin D (1 source) Vitamin D Active VITAMIN D3 2,000 UNIT SOFTGEL (1 source) Start: 01-11-2023 VITAMIN D3 2,000 UNIT SOFTGEL VITAMIN D3 2,000 UNIT SOFTGEL Start Date: 01/11/23 Status: Ordered Problems Active Problems Problem Classification Problem Date Documented Date Episodic/Chronic Coagulation and hemorrhagic disorders (4 sources) Thrombocytopenic disorder; Translations: [Thrombocytopenia, unspecified] Onset: 4 01-11-2023 Chronic Disorders of lipid metabolism (1 source) Pure hypercholesterolemia, unspecified; Translations: [PURE HYPERCHOLESTEROLEMIA UNSPEC] Onset: 2 Chronic Essential hypertension (4 sources) Hypertensive disorder; Translations: [Essential (primary) hypertension] Onset: 4 01-11-2023 Chronic Inflammation; infection of eye (except that caused by tuberculosis or sexually transmitteddisease) (1 source) Unspecified conjunctivitis Episodic Miscellaneous mental health disorders (1 source) Suicidal behavior; Translations: [Other symptoms and signs involving emotional state] 05-14-2024 Episodic Mood disorders (11 sources) Major depressive disorder, single episode, in full remission; Translations: [Bipolar affective disorder, current episode manic] Onset: 2 Resolved: 3 Chronic Mood disorders (1 source) Mood disorder due to known physiological condition, unspecified; Translations: [Mood disorder due to known physiological condition, unspecified] Onset: 4 Episodic Mycoses (1 source) Onychomycosis; Translations: [Tinea unguium] 09-05-2023 Episodic Other acquired deformities (4 sources) Scoliosis deformity of spine; Translations: [Scoliosis, unspecified] Onset: 4 01-11-2023 Chronic Other bone disease and musculoskeletal deformities (1 source) Exostosis of right foot; Translations: [Other specified disorders of bone, ankle and foot] 09-05-2023 Episodic Other connective tissue disease (1 source) Pain of toes of bilateral feet; Translations: [Pain in right toe(s)] 09-05-2023 Episodic Other ear and sense organ disorders (8 sources) Bilateral hearing loss; Translations: [Unspecified hearing loss, bilateral] Onset: 3 12-26-2022 Chronic Other ear and sense organ disorders (6 sources) Chronic right myringitis; Translations: [Chronic myringitis, right ear] Onset: 3 12-26-2022 Chronic Other ear and sense organ disorders (6 sources) Sensorineural hearing loss, bilateral; Translations: [Sensorineural hearing loss, bilateral] Onset: 3 12-26-2022 Chronic Other nervous system disorders (6 sources) Chronic pain; Translations: [Other chronic pain] Onset: 3 Resolved: 3 12-26-2022 Chronic Other nervous system disorders (2 sources) Impaired cognition; Translations: [Other symptoms and signs involving cognitive functions and awareness] 04-28-2024 Episodic Other nutritional; endocrine; and metabolic disorders (2 sources) Developmental delay; Translations: [Unspecified lack of expected normal physiological development in childhood] 04-28-2024 Episodic Residual codes; unclassified (2 sources) Family history of dementia; Translations: [Family history of other mental and behavioral disorders] 04-28-2024 Episodic Schizophrenia and other psychotic disorders (3 sources) Schizoaffective disorder, bipolar type; Translations: [Schizoaffective disorder, bipolar type] Onset: 05-14-2024 Chronic Unclassified (1 source) Intellectual disability 01-11-2023 Past or Other Problems Problem Classification Problem Date Documented Date Episodic/Chronic Alcohol-related disorders (6 sources) Alcohol abuse; Translations: [Alcohol abuse, uncomplicated] Onset: 12-26-2022 Resolved: 12-26-2022 12-26-2022 Chronic Anxiety disorders (8 sources) Anxiety; Translations: [Generalized anxiety disorder] Onset: 12-26-2022 Resolved: 12-26-2022 01-11-2023 Chronic Developmental disorders (6 sources) Mild intellectual disability; Translations: [Mild intellectual disabilities] Onset: 12-26-2022 Resolved: 12-26-2022 12-26-2022 Chronic Osteoarthritis (6 sources) Primary gonarthrosis, bilateral; Translations: [Bilateral primary osteoarthritis of knee] Onset: 12-26-2022 Resolved: 12-26-2022 12-26-2022 Chronic Other connective tissue disease (6 sources) History of repair of hip joint; Translations: [Presence of right artificial hip joint] Onset: 12-26-2022 Resolved: 12-26-2022 12-26-2022 Chronic Other connective tissue disease (6 sources) Hip joint prosthesis present; Translations: [Presence of right artificial hip joint] Onset: 12-26-2022 Resolved: 12-26-2022 12-26-2022 Chronic Other connective tissue disease (6 sources) Pain of right thigh; Translations: [Pain in right thigh] Onset: 12-26-2022 Resolved: 12-26-2022 12-26-2022 Episodic Other ear and sense organ disorders (6 sources) Impacted cerumen of bilateral ears; Translations: [Impacted cerumen, bilateral] Onset: 01-03-2023 01-03-2023 Episodic Other ear and sense organ disorders (3 sources) Otorrhea; Translations: [Otorrhea, right ear] Onset: 12-11-2023 12-11-2023 Episodic Other inflammatory condition of skin (6 sources) Rosacea; Translations: [Rosacea, unspecified] Onset: 12-26-2022 Resolved: 12-26-2022 12-26-2022 Chronic Other injuries and conditions due to external causes (6 sources) Foreign body in middle ear; Translations: [Foreign body in left ear, initial encounter] Onset: 01-03-2023 01-03-2023 Episodic Other non-traumatic joint disorders (6 sources) Pain in right knee; Translations: [Pain in joint, lower leg] Onset: 12-26-2022 Resolved: 12-26-2022 12-26-2022 Episodic Other non-traumatic joint disorders (3 sources) Pain in right hip joint; Translations: [Pain in right hip] Onset: 12-26-2022 Resolved: 12-26-2022 12-26-2022 Episodic Other non-traumatic joint disorders (3 sources) Hip pain; Translations: [Pain in right hip] Onset: 12-26-2022 Resolved: 12-26-2022 12-26-2022 Episodic Otitis media and related conditions (15 sources) Postmastoidectomy complication; Translations: [Other disorders following mastoidectomy, unspecified ear] Onset: 04-29-2018 12-26-2022 Episodic Thyroid disorders (6 sources) Goiter; Translations: [Nontoxic goiter, unspecified] Onset: 12-26-2022 Resolved: 12-26-2022 12-26-2022 Chronic Results Test Name Value Interpretation Reference Range Facility Cholesterol [Mass/volume] in Serum or PlasmaOrdered By: Bart Rodríguez on 05-18-2024 Cholesterol [Mass/Vol] 164 mg/dL Normal 140-200 [facility] Comment on above: Chol less than 200 m g/dl low riskChol 201-239 mg/dl borderline riskChol 240 mg/dl and greater high risk Order Comment: PER Dean STERN PT DIDN'T HAVE WRIST BAND ON Result Comment: Chol less than 200 mg/dl low risk Chol 201-239 mg/dl borderline risk Chol 240 mg/dl and greater high risk Performed By: #### L IPID, [id number], TSH3 wRFLX #### [address] Cholesterol in LDL Calc [Mas s/Vol]Ordered By: Bart Rodríguez on 05-18-2024 Cholesterol in LDL [Mass/Vol] 104 mg/dL High 0-100 [facility] Comment on above: LDL ATP III CLASSIFI CATIONLDL less than 100 mg/dL OptimalLDL 100-129 mg/dL Near or above optimalLDL 130-159 mg/dL Borderline highLDL 160-189 mg/dL HighLDL greater than 189 mg/dL Very high Cholesterol in VLDL Calc [Ma ss/Vol]Ordered By: Bart Rodríguez on 05-18-2024 Cholesterol in VLDL [Mass/Vol] 15 mg/dL [facility] Lipid Panelon 05-18-2024 LDL Cholesterol,Calculated 104 mg/dL High 0-100 [facility] Comment on above: Order Comment: ENEIDA STERN PT DIDN'T HAVE WRIST BAND ON Result Comment: LDL ATP III CLASSIFICATION LDL less than 100 mg/dL Optimal LDL 100-129 mg/dL Near or above optimal LDL 130-159 mg/dL Borderline high LDL 160-189 mg/dL High LDL greater than 189 mg/dL Very high Performed By: #### L IPID, [id number], TSH3 wRFLX #### [facility] [address] [place] [address] [place] Triglyceride w/Reflex 77 mg/dL Normal 0-149 [facility] Comment on above: Order Comment: ENEIDA STERN PT DIDN'T HAVE WRIST BAND ON Result Comment: TRIG ATP III CLASSIFICATION TRIG less than 150 mg/dL Normal TRIG 150-199 mg/dL Borderline high TRIG 200-500 mg/dL High TRIG greater than 500 mg/dL Very high Standard traceable to the Center for Disease Conrtrol and Prevention (CDC) test method. Performed By: #### L IPID, [id number], TSH3 wRFLX #### [facility] [address] [place] [id number] [place] VLDL CHOLESTEROL 15 mg/dL Normal [facility] Comment on above: Order Comment: ENEIDA STERN PT DIDN'T HAVE WRIST BAND ON Performed By: #### L IPID, [id number], TSH3 wRFLX #### [facility] [address] [place] [id number] [place] Serum or plasma high density lipoprotein (HDL) cholesterol measurementOrdered By: Bart Rodríguez on 05-18-2024 Cholesterol in HDL [Mass/Vol] 45 mg/dL Normal 23-92 [facility] Comment on above: HDL CHOL ATP-III CLA SSIFICATION Cardiovascular RiskHDL > or equal to 60 mg/dL LOWHDL < 40 mg/dL HIGH Order Comment: ENEIDA STERN PT DIDN'T HAVE WRIST BAND ON Result Comment: HDL CHOL ATP-III CLASSIFICATION Cardiovascular Risk HDL > or equal to 60 mg/dL LOW HDL < 40 mg/dL HIGH Performed By: #### L IPID, [id number], TSH3 wRFLX #### [facility] [address] Serum or plasma total choles terol/high density lipoprotein (HDL) cholesterol mass ratOrdered By: Bart Rodríguez on 05-18-2024 Cholesterol.total/Chol esterol in HDL [Mass ratio] 3.6 {ratio} Normal <5.0 [facility] Comment on above: Order Comment: ENEIDA STERN PT DIDN'T HAVE WRIST BAND ON Performed By: #### L IPID, [id number], TSH3 wRFLX #### [facility] [address] Thyroid Stim Hormone w/Rflxo n 05-18-2024 Thyroid Stim Hormone w/Rflx 2.90 u[iU]/mL Normal 0.45-5.33 [facility] Comment on above: Order Comment: ENEIDA STERN PT DIDN'T HAVE WRIST BAND ON Performed By: #### L IPID, [id number], TSH3 wRFLX #### [facility] [address] Thyrotropin [Units/volume] i n Serum or PlasmaOrdered By: Bart Rodríguez on 05-18-2024 TSH Qn 2.90 m[IU]/L 0.45-5.33 [facility] Triglyceride [Mass/volume] i n Serum or PlasmaOrdered By: Bart Rodríguez on 10-27-2024 Triglyceride [Mass/Vol] 77 mg/dL 0-149 [facility] Comment on above: TRIG ATP III CLASSIF ICATIONTRIG less than 150 mg/dL NormalTRIG 150-199 mg/dL Borderline highTRIG 200-500 mg/dL High TRIG greater than 500 mg/dL Very highStandard traceable to the Center for Disease Conrtrol and Prevention (CDC) test method. Vitamin D 25 Hydroxy Totalon 05-18-2024 Vitamin D 25 Hydroxy Total 42.4 ng/mL Normal 30-100 [facility] Comment on above: Order Comment: ENEIDA STERN PT DIDN'T HAVE WRIST BAND ON Result Comment: SINA MIN D STATUS 25(OH)VITAMIN D RANGE (ng/mL) Deficient <20 Insufficient 20 to <30 Sufficient 30 to 100 Reference: Tyron Reyes, Chad ELAINE, et al. Evaluation,treatment, and prevention of vitamin D deficiency; an Endocrine Society clinical practice guideline. JCEM. 2010; 96(7):1911-30. PERFORMED BY: [place] [address] PATHOLOGIST DECK MATE NIHARIKA SMITH M.D. Performed By: #### L IPID, [id number], TSH3 wRFLX #### [address] Vitamin D+Metabolites [Mass/ volume] in Serum or PlasmaOrdered By: Bart Rodríguez on 05-18-2024 Vitamin D+Metabolites [Mass/Vol] 42.4 ng/mL 30-100 [facility] Comment on above: VITAMIN D STATUS 25( OH)VITAMIN D RANGE (ng/mL) Deficient <20 Insufficient 20 to <30Sufficient 30 to 100Reference: Tyron Reyes, Chad ELAINE, et al. Evaluation,treatment, and prevention of vitamin D deficiency; an Endocrine Society clinical practice guideline. JCEM. 2010; 96(7):1911-30. Pal 01-07-2024 L Specimen: [id number] Received: 01/07/24 Status: SOUT Req Num: [id number] Spec Type: Surgical Subm Dr: Fortunato Lin MD Tissues: A BREAST CORE NO CALCS (RT BREAST 9 O'CLOCK) Procedures: HE/2, Gross/Micro L4 Age/ Patient Sex Location Account Attending Physician Rhiannon Allisoncy Elham 63/F LABELL [id number] Forutnato Lin MD SPEC NUM: [id number] RECD: 01/07/24 STATUS: CRISTÓBAL TAYLOR NUM: [id number] ERIC: 01/07/24 DR: Fortunato Lin MD ENTERED: 01/07/[address] [facility] [address]: Indira,Lab SPEC TYPE: Surgical DEPT: YASHIRA PEREZ ORDERED: HE/2, Gross/Micro L4 ORDERED: HE/2, Gross/Micro L4 Pathological Diagnosis Mass, left breast, 9:00, core biopsy: Benign breast tissue with focal fibroadenomatoid change. Clinical Information US-guided core biopsy Gross Description Received in formalin labeled with the patient's name, date of left breast 9:00 mass are 5 friable rodríguez-yellow fibrofatty tissue cores ranging from 1.5 to 1.0 cm in length by 0.3 cm in diameter, entirely submitted in A1. Time of collection: 01/07/2024 at 0851 Time in formalin: 01/07/2024 at 0854 Placed in 10% neutral buffered formalin Time of gross: 01/07/2024 at 1402 CPT Codes 40789 ---- ---- Specimen: [id number] Received: 01/07/24 Status: CRISTÓBAL Taylor Num: [id number] Spec Type: Surgical Subm Dr: Fortunato Lin MD Tissues: A BREAST CORE NO CALCS (RT BREAST 9 O'CLOCK) Procedures: HE/2, Gross/Micro L4 ---- Patient: Michelle Allison [id number] (Continued) ---- Signed (signature on file) Ishaan Nevarez MD 01/15/24 1448 Normal [facility] CBC AUTO DIFFon 06-01-2022 BASO # 0.0 103/ul Normal 0.0-0.1 [facility] Comment on above: Performed By: #### C BC #### [facility] [address] [place] [address] Dr. Jone Plascencia Basophils/100 WBC (Bld) 0.4 % Normal 0.2-2.0 [facility] Comment on above: Performed By: #### C BC #### [facility] [address] [place] [address] Dr. Jone Plascencia EO # 0.1 103/ul Normal 0.0-0.7 [facility] Comment on above: Performed By: #### C BC #### [facility] [address] [place] [address] Dr. Jone Plascencia Eosinophils/100 WBC (Bld) 1.5 % Normal 0.9-7.0 [facility] Comment on above: Performed By: #### C BC #### [facility] [address] [place] [address] Dr. Jone Plascencia Erythrocyte distribution width (RBC) [Ratio] 13.3 % Normal 11.0-15.0 [facility] Comment on above: Performed By: #### C BC #### [facility] [address] [place] [address] Dr. Jone Plascencia Hematocrit (Bld) [Volume fraction] 38.4 % Normal 36.0-48.0 [facility] Comment on above: Performed By: #### C BC #### [facility] [address] [place] [address] Dr. Jone Plascencia Hemoglobin (Bld) [Mass/Vol] 12.4 g/dL Normal 12.0-16.0 [facility] Comment on above: Performed By: #### C BC #### [facility] [address] [place] [address] Dr. Jone Plascencia IG # 0.02 10e3/ul Normal 0.00-0.03 [facility] Comment on above: Performed By: #### C BC #### [facility] [address] [place] [address] Dr. Jone Plascencia IG % 0.4 % Normal 0.0-0.5 [facility] Comment on above: Performed By: #### C BC #### [facility] [address] [place] [address] Dr. Jone Plascencia LYMPH # 1.3 103/ul Normal 1.2-3.8 [facility] Comment on above: Performed By: #### C BC #### [facility] [address] [place] [address] Dr. Jone Plascencia Lymphocytes/100 WBC (Bld) 23.1 % Normal 20.5-60.0 [facility] Comment on above: Performed By: #### C BC #### [facility] [address] [place] [address] Dr. Jone Plascencia MANUAL DIFF REQ NO Normal [facility] Comment on above: Performed By: #### C BC #### [facility] [address] [place] [address] Dr. Jone Plascencia MCH (RBC) [Entitic mass] 28.2 pg Normal 26.7-34.0 [facility] Comment on above: Performed By: #### C BC #### [facility] [address] [place] [address] Dr. Jone Plascencia MCHC (RBC) [Mass/Vol] 32.3 g/dL Normal 29.9-35.2 [facility] Comment on above: Performed By: #### C BC #### [facility] [address] [place] [address] Dr. Jone Plascencia MCV (RBC) [Entitic vol] 87.5 fL Normal 81.0-99.0 [facility] Comment on above: Performed By: #### C BC #### [facility] [address] [place] [address] Dr. Jone Plascencia MONO # 0.4 103/ul Normal 0.3-0.8 [facility] Comment on above: Performed By: #### C BC #### [facility] [address] [place] [address] Dr. Jone Plascencia Monocytes/100 WBC (Bld) 7.0 % Normal 1.7-12.0 [facility] Comment on above: Performed By: #### C BC #### [facility] [address] [place] [address] Dr. Jone Plascencia NEUT # 3.7 103/ul Normal 1.4-6.5 [facility] Comment on above: Performed By: #### C BC #### [facility] [address] [place] [address] Dr. Jone Plascencia Neutrophils/100 WBC (Bld) 67.6 % Normal 43.0-75.0 [facility] Comment on above: Performed By: #### C BC #### [facility] [address] [place] [address] Dr. Jone Plascencia Platelet mean volume (Bld) [Entitic vol] 12.0 fL Normal 9.5-13.5 [facility] Comment on above: Performed By: #### C BC #### [facility] [address] [place] [address] Dr. Jone Plascencia PLT 109 103/ul Critically low 150-450 [facility] Comment on above: Performed By: #### C BC #### [facility] [address] [place] [address] Dr. Jone Plascencia RBC 4.39 106/ul Normal 4.20-5.40 [facility] Comment on above: Performed By: #### C BC #### [facility] [address] [place] [address] Dr. Jone Plascencia WBC 5.4 103/ul Normal 4.0-11.0 [facility] Comment on above: Performed By: #### C BC #### [facility] [address] [place] [address] Dr. Jone Plascencia FREE T4on 06-01-2022 Free T4 [Mass/Vol] 0.91 ng/dL Normal 0.76-1.46 [facility] Comment on above: Performed By: #### F T4 #### [facility] [address] [place] [address] Dr. Jone Plascencia LIPID PROFILEon 06-01-2022 CHOL-HDL RATIO NORM SEE BELOW Normal [facility] Comment on above: Result Comment: 3.3 - 4.4 LOW RISK 4.4 - 7.1 AVERAGE RISK 7.1 - 11.0 MODERATE RISK >11.0 HIGH RISK Performed By: #### C MP, TSH, LIPID #### [facility] [address] [place] [address] Dr. Jone Plascencia Cholesterol [Mass/Vol] 198 mg/dL Normal <=200 [facility] Comment on above: Performed By: #### C MP, TSH, LIPID #### [facility] [address] [place] [address] Dr. Jone Plascencia Cholesterol in HDL [Mass/Vol] 52 mg/dL Normal 40-60 [facility] Comment on above: Performed By: #### C MP, TSH, LIPID #### [facility] [address] [address] [address] Jone Plascencia Cholesterol in LDL [Mass/Vol] 126.2 mg/dL Normal [facility] Comment on above: Performed By: #### C MP, TSH, LIPID #### [facility] [address] [address] [address] Jone Plascencia Cholesterol.total/Chol esterol in HDL [Mass ratio] 3.8 {ratio} Normal [facility] Comment on above: Performed By: #### C MP, TSH, LIPID #### [facility] [address] [address] [address] Jone Plascencia HDL NORMAL > or = 60 mg/dl - LO W CARDIOVASCULAR RISK <40 mg/dl - HIGH CARDIOVASCULAR RISK Normal [facility] Comment on above: Performed By: #### C MP, TSH, LIPID #### [facility] [address] [place] [address] Dr. Jone Plascencia LDL CALC NORMAL SEE BELOW Normal [facility] Comment on above: Result Comment: <100 mg/dl OPTIMAL 100 - 129 mg/dl NEAR OR ABOVE OPTIMAL 130 - 159 mg/dl BORDERLINE HIGH 160 - 189 mg/dl HIGH >190 mg/dl VERY HIGH Performed By: #### C MP, TSH, LIPID #### [facility] [address]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 22:20 05/15/24 22:20 05/16/24 09:00 Assessment/Plan Assessment/Plan (1) Schizoaffective disorder, bipolar type: Plan Patient presents with suicidal behavior and emotional dysregulation. Discussed Invega with guardian, but this was not wanted, as guardian is concerned about withdrawal from medication if chosen to be weaned in the future. --Monitor today and consider increasing Abilify to 7 mg tomorrow. Medications: Abilify 5 mg nightly, Zoloft 150 mg daily, hydroxyzine 10 mg twice daily, Seroquel 100 mg twice daily Encourage medication adherence. Continue to monitor mental status Monitor suicidal behaviors for safety of self (15-minute face check). Recommend attending groups and psychoeducation for building coping skills. Involve friends/family members to coordinate care and ensure appropriate outpatient appointments are scheduled prior to discharge. Risks, benefits, indications and alternatives discussed and explained. Documented By: Bart Rodríguez MD [id number] Signed By: <Electronically signed by Bart Rodríguez MD> 05/16/24 6318 <Electronically signed by DO NATALIE Conway> 05/16/24 1451 [facility] Work Phone: 1(564) 590-754510-24-2024 Progress note Author Bart poole [facility] May 15, 2024 11:41am Note Date/Time May 15, 2024 1 1:20am [facility] [address] [place] [address] Psychiatry Progress Note Signed Patient: Michelle Allison MR#: [id number] : 1960 Acct:[id number] Age/Sex: 64 / F Adm Date: 4 Loc: Room: 4Y4223-3 Type : ADM IN Attending Dr: Bart Rodríguez MD Copies to: ~ Date of Service: 05/15/2024 Subjective Subjective Narrative: Narrative: Michelle Allison is feeling frustrated. Today, upon assessment when she woke up, she came out of her room and was offered breakfast, but refused. She again asked if she could go home today. When she did not receive a satisfactory answer, she became very upset, her face became red, she she then became angry, stood up from her seat this is inferior, I want to go home! She then walked over to her door, the door the paper sign off and threw it away. She then stormed into her room, and shouted, leave me alone! Patient was personally seen by me on the day of the encounter. I reviewed the history and performed the ibarra elements of the assessment. I formulated the planof care and confirmed this with the resident as noted below Mental Status Exam: Appearance: grossly normal Mental Status: mental status grossly normal Mood: depressed mood Affect: mood congruent Speech and Movement: speech normal, movement normal Attitude: uncooperative, Thought Process: normal Thought Content: Denied hallucinations, homicidality, suicidality Insight: poor Judgment: poor Exam Physical Exam Vital Signs: Temp Pulse Resp BP Pulse Ox O2 Del Method 98.2 F 79 16 102/72 95 Room Air 05/15/24 07:30 05/15/24 07:30 05/15/24 07:30 05/15/24 07:30 05/15/24 07:30 05/15/24 07:30 Assessment/Plan Assessment/Plan (1) Schizoaffective disorder, bipolar type: Plan Patient presents with suicidal behavior and emotional dysregulation. Discussed in ago with guardian, but this was not wanted. Monitor today and consider increasing Abilify to 7 mg tomorrow. Medications: Abilify 5 mg nightly, Zoloft 150 mg daily, hydroxyzine 10 mg twice daily, Seroquel 100 mg twice daily Encourage medication adherence. Continue to monitor mental status Monitor suicidal behaviors for safety of self (15-minute face check). Recommend attending groups and psychoeducation for building coping skills. Involve friends/family members to coordinate care and ensure appropriate outpatient appointments are scheduled prior to discharge. Risks, benefits, indications and alternatives discussed and explained. Documented By: Bart Rodríguez MD [id number] Signed By: <Electronically signed by Bart Rodríguez MD> 05/15/24 1141 <Electronically signed by DO NATALIE Conway> 05/15/24 1120 [facility] Work Phone: 1(349) 147-510610-23-2024 History and physical note Author Bart poole [facility] May 14, 2024 4:41pm Note Date/Time May 14, 2024 3 :23pm [facility] [address] [place] [address] Psychiatry H&P Signed Patient: Michelle Allison MR#: [id number] : 1960 Acct:[id number] Age/Sex: 64 / F Adm Date: 4 Loc: Room: [address] [place] [address] Type: ADM IN Attending Dr: Bart Rodríguez MD Copies to: Bart Rodríguez MD FAMILY PHYSICIAN Curtis Conway DO, RES~ Date of Service: 05/14/2024 HPI Narrative Narrative: Narrative: Michelle Allison is a 64 year old female with reported history of mooddisorder who presents for inpatient treatment due to suicidal ideation and mood dysregulation. Reportedly, patient presented to the ER in [place] from her [facility]. Per documentation, the patient has had several emotional outbursts at hergroup home, and has been noted to throw objects when she is upset. Per reports,she has also walked into traffic on 3 separate occasions over the past 2 days. Patient denies suicidal ideation, homicidal ideation, anxiety, depression, auditory visual hallucinations. Patient's guardian is her niece, Raquel Ortiz. On admission, patient was reported to be asking to leave stating, I do not belong here, I have to go home. Patient was personally seen by me on the day of the encounter. I reviewed the history and performed the ibarra elements of the assessment. I formulated the planof care and confirmed this with the resident as noted below At time of the interview, patient presents as fatigued and frustrated. Patient states I want to go home , and states that she is unhappy to be in treatment atthis time. Patient does state that she has been having problems at her usp, and states that she has not been getting along well with her sister. Patient notes that sometimes she will leave her usp to stay with her mother on Sunday and through the weekends. Patient was personally seen by me on the day of the encounter. I reviewed the history and performed the ibarra elements of the assessment. I formulated the planof care and confirmed this with the resident as noted below Past psych history: Mood disorder Past hospitalizations: Denies previous hospitalizations Past suicide attempts: Denies past suicide attempts Previous medications: Hydroxyzine 10 mg twice daily, Seroquel 100 mg twice daily, Sertraline 150 mg daily Family History: Unable to obtain Alcohol and drug use: Denies alcohol or drug use Living: correction Employment: Disability Review of Systems: Constitutional: Denies chills and Denies fever(s) Eyes: Denies change in vision ENT: Denies abnormal hearing Cardiovascular: Denies chest pain Respiratory: Denies chest congestion and Denies cough Gastrointestinal: Denies change in bowel habits Genitourinary: Denies dysuria Musculoskeletal: Headache Integumentary/Breasts: Denies dry skin Neurologic: Denies abnormal gait and Denies abnormal movements Psychiatric: Reports [depression and suicidal ideation] Physical exam: Const: cooperative Nutritional Appearance: average body habitus Orientation: alert, awake and oriented x3 HEENT: Head normal to inspection, hearing grossly normal bilaterally, external nose normal, face symmetric Eyes: appearance normal, both eyes and all related structures, sclerae normal Neck: normal visual inspection and full ROM Resp: normal respiratory effort, able to speak in complete sentences and symmetric chest movement Cardio: regular rate GI: normal to inspection and non-distended : deferred Skin: no rashes or lesions noted Neuro: CNI: Normal olfaction : Visual samuels intact, CNIII,IV,: EOM intact, nonystagmus. Pupils equal, round, reactive to light and accommodation, CNV: Sensation intact to light touch, CNVII: Raises eyebrows, smile/frown, puff out cheeks symmetrically, CNVIII: Hearing intact bilaterally, but extremely impaired, patient uses hearing aid in left ear, CNIX,X: Voice normal, soft palate elevation normal, symmetrical, CNXI: Shoulder shrug strong, equal bilaterally, CNXII: Tongue protrusion midline, movement symmetrical. Extrem: normal to inspection and full ROM MSE: Appearance: grossly normal. Fair grooming and hygiene, calm, cooperative, engaged in the interview. Good eye contact. Normal psychomotor activity. Mental Status: mental status grossly normal Mood: Frustrated Affect: mood-congruent affect Speech and Movement: speech and movement are slowed. Decreased rate and rhythm,increased volume. Non pressured. Attitude: cooperative Thought Process: Perseverates on leaving, disorganized Thought Content: Denied hallucinations, homicidality, suicidal ideation Insight: Poor Judgment: Poor PMFSH Family History (Updated 07/24/23 @ 17:41 by Provider Conversion) Father Heart disease Diabetes Family/Other Legacy FamHx Problem: 1 sister is Mother Heart disease History of stroke Legacy FamHx Problem: Diagnosed with Stroke Hypertension Social History Smoking Status: Never smoker Substance Use Type: None Substance Abuse Comment: per P report Social History Comments: correction Meds Medications and Allergies Allergies prochlorperazine [Compazine] Allergy (Unknown, Verified 07/24/23 17:41) muscle twitcing Home Medications ergocalciferol (vitamin D2) 50 mcg (2,000 unit) capsule 50 mcg PO DAILY 05/14/24 [History Confirmed 05/14/24] hydroxyzine HCl 10 mg tablet 10 mg PO BID 05/14/24 [History Confirmed 05/14/24] levothyroxine 50 mcg tablet 50 mcg PO DAILY.0630 05/14/24 [History Confirmed 05/14/24] magnesium oxide 250 mg PO DAILY 05/14/24 [History Confirmed 05/14/24] omeprazole 20 mg capsule,delayed release 20 mg PO DAILY 05/14/24 [History Confirmed 05/14/24] quetiapine 100 mg tablet (Seroquel) 100 mg PO BID 05/14/24 [History Confirmed 05/14/24] sertraline 100 mg tablet (Zoloft) 150 mg PO DAILY 05/14/24 [History Confirmed 05/14/24] Exam Physical Exam Vital Signs: Temp Pulse Resp BP Pulse Ox O2 Del Method 97.8 F 92 18 138/96 97 Room Air 05/14/24 04:01 05/14/24 04:01 05/14/24 04:01 05/14/24 04:01 05/14/24 04:01 05/14/24 04:01 Assessment/Plan (1) Schizoaffective disorder, bipolar type: Plan Patient presents with suicidal behavior and emotional dysregulation. Restart home meds Medications: Abilify 5 mg nightly Encourage medication adherence. Continue to monitor mental status Monitor suicidal behaviors for safety of self (15-minute face check). Recommend attending groups and psychoeducation for building coping skills. Involve friends/family members to coordinate care and ensure appropriate outpatient appointments are scheduled prior to discharge. Risks, benefits, indications and alternatives discussed and explained. Documented By: Bart Rodríguez MD 4 [id number] Signed By: <Electronically signed by Bart Rodríguez MD> 05/14/24 1641 <Electronically signed by DO NATALIE Conway> 05/14/24 1522 [facility] Work Phone: 1(248) 734-637510-07-2024 History of Present illness Narrative* Juan Hollis, - 04/28/2024 2:30 PM EDT Images from the original note were not included. Chief complaint: Cognitive impairment Subjective Michelle Allison, 64 y.o., female Michelle is here for a neurologic consult at the request of Dr. Leon for memory changes. She is accompanied by Susan an employee at [employer] which is where she resides. Susan states she has been havingprogressive agitation. She states the patients mother has dementia. Susan reports the patient is always asking the same questions over and over. She denies any hallucinations. She does have a psychiatry appointment this week as well. She states she does have a history of mental illness which includes depression, alcohol abuse. Patient is also MRDD with significant hearing loss. Review of Systems Constitutional: Negative for appetite change, fatigue and fever. Respiratory: Negative for cough, shortness of breath and wheezing. Cardiovascular: Negative for chest pain, palpitations and leg swelling. Gastrointestinal: Negative for abdominal pain, constipation, diarrhea and nausea. Musculoskeletal: Negative for arthralgias, gait problem and myalgias. Neurological: Negative for dizziness, tremors, numbness and headaches. Cognitive impairment Past Medical History: Diagnosis Date Alcohol abuse 12/26/2022 Anxiety 12/26/2022 Bilateral hearing loss Bipolar affective disorder, current episode manic ([facility]) 12/26/2022 Complication following bilateral mastoidectomy Drunkenness, acute, in alcoholism, with unspecified complication ([facility]) History of medical problems Mild mental retardation History of right hip replacement 12/26/2022 Osteoarthritis Other chronic pain 12/26/2022 Pain in right knee 12/26/2022 Presence of right artificial hip joint 12/26/2022 Primary osteoarthritis of both knees 12/26/2022 Right hip pain 12/26/2022 Right thigh pain 12/26/2022 Scoliosis Sensorineural hearing loss, bilateral Thyroid enlargement (CMS/HCC) 12/26/2022 Past Surgical History: Procedure Laterality Date ADENOIDECTOMY 1973 BACK SURGERY 1984 COLONOSCOPY 2014 MASTOID SURGERY Right 1974 TONSILLECTOMY 1973 TOTAL HIP ARTHROPLASTY Right 2016 TYMPANOPLASTY Left 03/20/1975 TYMPANOSTOMY TUBE PLACEMENT x2 Family History Problem Relation Name Age of Onset Cancer Mother's Brother Spinal Social History Tobacco Use Smoking status: Never Smokeless tobacco: Never Substance Use Topics Alcohol use: Not Currently Comment: Caffeine intake: 1-2 cups per day of coffee Allergies: Prochlorperazine Vitals: 04/28/24 1428 BP: 131/79 Pulse: 77 SpO2: 97% Body mass index is 28.12 kg/m . weight: 148 lb 12.8 oz Neurologic exam: Mental status: Awake, alert to person, place Developmentally delayed Language is fluent without aphasia. Attention and concentration are normal. Fund of knowledge is appropriate for level of education. Cranial nerves: CN II: Visual acuity is normal. Visual samules full to confrontation. CN III, IV, : pupils equal round and reactive to light. Extraocular movements intact. No ptosis present. CN V: Facial sensation is normal. CN VII: Full and symmetric facial movement. CN VIII: Patient has hearing loss bilaterally CN IX and X: Palate elevates symmetrically. CN XI: Shoulder shrug is normal bilaterally. CN XII: Tongue is midline without atrophy or fasciculation. 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 RLE Strength illopsoas, quadriceps, tibialis anterior, and gastrocnemius strength 5/5. LLE Strength illopsoas, quadriceps, tibialis anterior, and gastrocnemius strength 5/5. Normal tone x4 extremities. Bulk is normal. Bulk is normal. Patient does have tremor in the bilateral upper extremities and in the head. Sensory: Sensation is intact to light touch throughout Four extremities. Reflexes: RUE biceps reflex 3+ brachioradialis reflex 3+ . LUE biceps reflex 3+ brachioradialis reflex 3+ . RLE knee reflex 3+ . LLE knee reflex 3+ . Coffman's sign negative. Coordination: [place]-by-otcl testing and rapid alternating movements are normal Gait: Normal Review and summary of old records: Assessment/Plan Diagnoses and all orders for this visit: Cognitive impairment Family history of dementia Developmental delay Bilateral hearing loss, unspecified hearing loss type It is my impression that the patient is having cognitive impairment. The patient does have a history of MRDD and additionally has history of dementia in her mother. Additionally, the patient also hassubstantial hearing loss bilaterally. This is made cognitive screen such as [place] cognitive assessment not possible. We are using history to try to understand the patient's process. I think the patient would have trouble with MRA imaging as well. Examination does not appear to relate any other focal abnormalities per se. Plan: CT of the brain without contrast Certainly MRI would be favored but the patient will not be able to tolerate given degrees of cognitive impairment, history of agitation and MR DD Check vitamin B12 and thyroid stimulating hormone Would also like to obtain neuropsych testing, but again, given the patient's baseline mental statusthis would be of limited utility and probably very frustrating for the patient I will leave all behavioral health medication changes to the patient's behavioral health team who she sees later this week. Additional history is taken from a caregiver who accompanies the patient today, Susan. Pt has been fully educated on their diagnosis, lab results, treatment options, follow up plan, return instructions, and discussion of mental health issues documented in this [id number] History of Present illness Narrative* Curtis Nur DPM - 09/06/2023 3:20 PM EST Patient: Michelle Allison : 1960 PCP: Ayde Hoyos MD SUBJECTIVE [...] loss Bipolar affective disorder, current episode manic ([facility]) 12/26/2022 Complication following bilateral mastoidectomy Drunkenness, acute, in alcoholism, with unspecified complication ([facility]) History of medical problems Mild mental retardation History of right hip replacement 12/26/2022 Osteoarthritis Other chronic pain 12/26/2022 Pain in right knee 12/26/2022 Presence of right artificial hip joint 12/26/2022 Primary osteoarthritis of both knees 12/26/2022 Right hip pain 12/26/2022 Right thigh pain 12/26/2022 Scoliosis Sensorineural hearing loss, bilateral Thyroid enlargement ([facility]) 12/26/2022 Medications: Current Outpatient Medications: cholecalciferol (Vitamin [...] through 10. Positive hair growth b/l feet. Bonyprominence noted to the distal phalanx right great [...] Patient may continue with conservative treatments including [id number] anti- inflammatories and other treatments suggested today. Patient may want to be s cheduled for surgical intervention in the near future. Discussed possible exostectomy to the distalmedial right hallux and area of bony prominence and area of pain. Discussed postoperative time frame with patient and caregiver present today and she states that she will also discuss with her when she has her hearing aids in and can better here and for more complete understanding at that time withfollow-up in 70 days Curtis Nur DPM documented in this encounterBarn[facility] [id number] Evaluation note* Encounter Date Diagnosis Assessment Notes Treatment Notes Treatment Clinical Notes Jul, Bacterial conjunctivitis of right eye (ICD-10 - H10.9) Advised patient/caregiver to use eye drops as prescribed, discussed [...] PCP or eye doctor. Documentation provided for group home. Immediate eval if symptoms worsen, eye pain, vision changes, redness and swelling occur around the eye, headache, fever, N/V or any other concerning symptoms. Patient and caregiver verbalizes understanding and is agreeable to treatment plan. better. Other [id number] Hospital Discharge instructions Follow Up Care 12/05/2022 15:01:30 With:CAYETANO BURROWS, BROOK Martini, URL Address: [address] [facility] [address] When: Unknown [facility] evaluation + Plan note No data available for this section [facility] evaluation note* Diagnosis Onychomycosis- Primary Dermatophytosis of nail Toe pain, bilateral Exostosis of right foot documented in this encounter [facility] HealthcareEvaluation noteNo assessment information availableThe [facility] Work Phone: Evaluation note* Diagnosis Cognitive impairment- Primary Unspecified persistent mental disorders due to conditions classified elsewhere Family history of dementia Family history of other neurological diseases Developmental delay Unspecified delay in development Bilateral hearing loss, unspecified hearing loss type Pain due to onychomycosis of toenails of both feet- Primary Exostosis of right foot documented in this encounter [facility] HealthcareEvaluation note* Diagnosis Onset Date Resolution Status Schizoaffective disorder, bipolar type acute [facility] Work Phone: History general Narrative - Reported* Type Description Date Medical History anxiety Medical History developmental delay Surgical History back surgery Surgical History ear surgery Surgical History tonsillectomy and adenoidectomy Surgical History hip Hospitalization History see above better. Other Progress note No data available for this section [facility] Summary Purpose Family History No Family History Records Found Relationship Condition Age at Onset Recorded Date/T raeann father Heart disease Unknown Diabetes mellitus Unknown Unknown family member Unknown Not Specified Heart disease Unknown History of stroke Unknown Hypertension Unknown Relationship Condition Age at Onset Recorded Date/T raeann father Heart disease Unknown Diabetes mellitus Unknown Unknown family member Unknown mother Heart disease Unknown History of stroke Unknown Hypertension Unknown Advance Directives No Advanced Directives Records Found Advance Directive Response Recorded Date/ Time Advance Directives No November 17, 2 024 5:27am Reason for Referral Specialty Diagnoses / Procedures Referred By Contac t Referred To Contact Radiology Diagnoses Cognitive impairment Family history of dementia Developmental delay Bilateral hearing loss, unspecified hearing loss type Procedures CT head wo IV contrast Juan Hollis, [address] [place] [id number] Referral ID Status Reason Start Date Expiration Date V isits Requested Visits Authorized [id number] Pending Review 04/28/2024 10/25/2024 1 1 Chief Complaint and Reason for Visit Chief Complaint Mood disorder unspec ified Mood disorder unspecified Reason for Visit Schizoaffective diso rder, bipolar type Additional Source Comments INFORMATION SOURCE (unrecogn ized section and content) DATE CREATED AUTHOR 06/07/2022 [facility] DATE CREATED AUTHOR AUTHOR'S ORGANIZ ATION 04/05/2023 [facility] DATE CREATED AUTHOR AUTHOR'S ORGANIZ ATION 04/29/2024 [facility] EPIC DATE CREATED AUTHOR AUTHOR'S ORGANIZ ATION 05/05/2024 [facility] DATE CREATED AUTHOR AUTHOR'S ORGANIZ ATION 06/26/2024 [facility] Patient Care team informatio n (unrecognized section and content) [employer] Relationship Specialty Start Date End Date Ayde Hoyos MD [address] [place] [address] PCP - General Family Medicine 01/02/23 [employer] Relationship Specialty Start Date End Date Ayde Hoyos MD [address] [place] [address] PCP - General Family Medicine 01/02/23 [employer] Director Relationship Specialty Start Date End Date Ayde Hoyos MD [address] [place] [address] PCP - General [facility] Medicine 01/02/23 Team Status: Inactive Member Role Status Dates Fortunato Lin MD Attending Provider Active Start: January 07, 2024 End: January 07, 2024 [employer] Director Relationship Specialty Start Date End Date Ayde Hoyos MD [address] [place] [address] PCP - [facility] 01/02/23 [employer] Director Relationship Specialty Start Date End Date Ayde Hoyos MD [address] [place] [address] PCP - General [facility] Medicine 01/02/23 Team Status: Active Member Role Status Dates PHYSICIAN NO FAMILY Primary Care Provider Active Team Status: Inactive Member Role Status Dates PHYSICIAN NO FAMILY Primary Care Provider Active Start: May 14, 2024 End: May 20, 2024 Bart Rodríguez MD Admit Provide r, Attending Provider Active Start: May 14, 2024 End: May 20, 2024 Team Status: Active Member Role Status Dates PHYSICIAN NO FAMILY Primary Care Provider Active Start: May 14, 2024 Bart Rodríguez MD Admit Provide r, Attending Provider, Other Provider Active Start: May 14, 2024 REASON FOR VISIT (unrecogniz ed section and content) Reason Comments Toenail Care Non DM Nails Goals (unrecognized section and content) Goals may be documented in a n alternate section FOR RECORDS PERTAINING TO PATIENTS WHO ARE [...] BE BASED ON THE PRIMARY CLINICAL RECORDS. [facility]. provides no warranty or guarantee of the accuracy or completeness of information in this document.
== END 2024-06-27 08:44 | disposition home or self-care (01) ==
LOC: CT 08:43
PROVIDERS: Visit Provider Psychiatry & Neurology Neurology
DX: R41.89 Other symptoms and signs involving cognitive functions and awareness (principal); Z81.8 Family history of other mental and behavioral disorders; R62.50 Unspecified lack of expected normal physiological development in childhood; H91.93 Unspecified hearing loss, bilateral
CPT/HCPCS: 70450